=== PATIENT | female | born 1950 | race Caucasian/White ===

== ENCOUNTER → 2016-11-01 | Outpatient (CLI) | payer BC, OTHER ==
[~2016-11-01] VITALS: Ht 167.6 cm; Wt 73.8 kg
[~2016-11-01] MED LIST: AMBIEN 5 MG TABL5 M1 PO; BENADRYL25 MG PO; BUTRANS1 EAC1 TD; CELEBREX 200 M200 MG; ESTRACE0.5 MG PO; LEXAPRO 10 MG T10 MG PO; MIRAPEX0.25 MG PO; NEURONTIN600 MG PO; RESTORIL15 MG PO; ULTRAM 50MG TAB50 MG PO; XANAX 0.25 MG0.25 MG PO; ZEGERID 20 MG1 EACH
--- NOTE | ~2016-11-01 | HPC ---
[facility] [place] [address] PAIN MANAGEMENT CONSULTATION Name: DELFINA RAYGOZA Room #: REG [facility] Chrissie.#: [id number] Admission: 11/01/16 Attend Phys: Bud Rangel MD Discharge: Date of : 54 Report #: [id number] THIS REPORT FOR: //name// CC: HUGO Rangel DATE OF SERVICE: 11/01/2016 REASON FOR CONSULTATION: 1. Post-laminectomy syndrome with excruciating pain in the left leg and foot following an L5 distribution. 2. Insomnia. HISTORY OF PRESENT ILLNESS: The patient is a 66-year-old female I am seeing today at the request of Dr. Paul Raygoza for evaluation of post-laminectomy syndrome. I last saw the patient in our clinic about 3 years ago. Beginning in 2015, her pain in the low back worsened and she decided to undergo treatment of her L5-S1 spondylolisthesis with a surgical anterior-posterior decompression and posterior fusion. The surgery was performed on 08/16/2015 and in the recovery room, she woke with excruciating pain radiating into the left leg following an L5 distribution. Symptoms persisted at severe level for about 48 hours and she was taken back to the operative room for a revision. At that time, it was noted that there was swelling and edema around the L5 nerve root. Surgery was completed and she was allowed to recover for another month or two, but symptoms were ongoing. She was then taken to the operative room for a second reason vision surgery on October 20. She says that there was treatment of pars fractures. Hardware was repositioned. She was allowed to recover from that surgery and undergone physical therapy and other treatments to help with recovery, but she is now left with a persistent left L5 radiculopathy, which has been documented also by EMG. She has been seen at the pain clinic at [facility] where they have provided medication trials and she was given 2 trochanteric bursa injections for coexistent hip pain. That is slightly better, but her primary problem remains the severe symptoms in her left thigh, calf and foot. She describes these symptoms as burning, stabbing and numbness; intensity scores vary between 3 and 10, her average daily pain intensity is 8/10 on a daily basis. She has been extremely discouraged and frustrated by her lack of recovery. She has also been suffering greatly with insomnia and has trialed various medications with limited success. She reports that she is getting about 2 hours of sleep at night and is ____ on her. She has been trying to use mindfulness meditation and is undergoing some pain [address] [address] PAIN MANAGEMENT CONSULTATION Name: DELFINA RAYGOZA Room #: REG [facility] Car#: [id number] Admission: 11/01/16 Attend Phys: Bud Rangel MD Discharge: Date of : 54 Report #: [id number] counseling weekly with a counselor and this has been helpful. I received a phone call from her , Dr. Paul Raygoza who asked if we would see her to discuss options, particularly spinal cord stimulation. She has had initial discussion about this with Dr. Lee Ann Oglesby at [facility]. MEDICATIONS: Alprazolam 0.25 mg at bedtime for sleep, gabapentin 1200 mg at bedtime and 300 mg morning and evening, Benadryl 25 mg daily, tramadol 50 mg 1 tablet b.i.d. p.r.n., Mirapex 0.25 mg daily, Celebrex 200 mg daily, Zegerid 20 mg and Lexapro 10 mg daily. ALLERGIES: CONTRAST DYE, SHELL FISH, CODEINE and METOCLOPRAMIDE. PAST MEDICAL HISTORY: Surgeries as mentioned above. She has also had bilateral knee replacement in 2006, bilateral thumb fusion in 2013 and 2015, bilateral bunion surgeries in 2011, appendectomy in 1976 and tonsillectomy in 1975. She had a fundoplication in 1997 and cholecystectomy in 1996. She describes gastroesophageal reflux disease, diffuse osteoarthritis. SOCIAL HISTORY: Denies use of tobacco. Drinks alcohol socially and nightly averaging about 7 alcohol units per week. 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 Impact of pain score is highest for sleep, 10/10. REVIEW OF SYSTEMS: Positive for fatigue, weakness, decreased appetite, constipation, depression and insomnia. PHYSICAL EXAMINATION: GENERAL: Obviously frustrated, but pleasant 66-year-old female. VITAL SIGNS: Blood pressure is 125/82, heart rate 72, respirations 16. She is 5 feet 6 inches, 162 pounds for a BMI of 26.3. CHEST: Clear. CARDIAC: Rhythm was regular. MUSCULOSKELETAL: She is able to easily move independently from a sitting to standing position and ambulates without antalgic features to her gait. There is no obvious weakness. Examination of the spine reveals two small incisions in the lower lumbar region where her posterior fusion occurred. She has reasonable range of motion with flexion, extension, rotation, and [id number] tilt. Straight leg raising in the sitting and in the supine position is performed without exacerbation of her symptoms. There is no notable focal weakness on the right. On the left, she has difficulty with dorsiflexion of the great toe, but is able to dorsiflex her foot against resistance. Sensation to light touch and pinprick is diminished slightly across the top of her foot. Deep tendon reflexes are trace at the knee on the left, 1 to 2+ on the right. Ankle jerk reflexes are symmetrical and trace. X-ray reports are reviewed. The most recent MRI shows that there has been some resolution of the edema and swelling noted around the L5 nerve root that was [facility] [address] [place] [address] PAIN MANAGEMENT CONSULTATION Name: DELFINA RAYGOZA Room #: REG [facility]#: [id number] Admission: 11/01/16 Attend Phys: Bud Rangel MD Discharge: Date of : 54 Report #: [id number] evident immediately following her surgery in 2015. Other surgical changes with an anterior-posterior instrumentation and interbody fusion at L5-S1, right-sided posterior hardware is noted as well. There is an unchanged 7 mL anterolisthesis of L5 on S1 with partial of the L5 lamina. Noted also is bilateral L5 spondylolysis. IMPRESSION: Post-laminectomy syndrome with persistent L5 radiculopathy of a severe nature on the left. RECOMMENDATIONS: 1. Resumed the discussion regarding spinal cord stimulation. I informed her that many of the physicians locally including myself and our group have been using the high frequency stimulation system provided by [employer] over the course of the last 6-9 months with some very positive outcomes. The advantages seemed to be the lack of the need for paresthesia to provide relief, good patient acceptance. I would recommend that if she undergoes a trial of spinal cord stimulation, that we proceed with that system. Pros and cons of the [employer] and the [employer] systems were also reviewed. I think that there are some advantages with each system and we could discuss further the systems that are available today. 2. I have recommended a trial of a new medication, Butrans patch 5 mcg to be applied q. 7 days. We had a long discussion about medication trials and she will see if this provides some relief around the clock for her. 3. Provided optimistic outlook for her. She has been very discouraged. [place] comfortable in telling her that there are many options that remain for her and she should be hopeful that the spinal cord stimulator system would be a very positive therapy for her. Followup visit is planned once we have preauthorization and we will proceed directly with her trial at that time. She can call if there are any questions prior to the placement of a trial lead. She was given a list of clinical psychologist to contact about an insurance company required preevaluation. By: [id number] Bud Rangel MD /nt
[2016-11-01 09:23] VITALS: BP 125/82
== END ==
LOC: PAIN 10-19 09:14
DX: M54.16 Radiculopathy, lumbar region (principal); M96.1 Postlaminectomy syndrome, not elsewhere classified

== ENCOUNTER → 2016-12-20 | Outpatient (CLI) | payer BC, OTHER ==
[~2016-12-20] VITALS: Ht 165.1 cm; Wt 75.4 kg
[2016-12-20 09:04] VITALS: BP 114/72
== END | disposition home or self-care (01) ==
LOC: PAIN 06:20
DX: M96.1 Postlaminectomy syndrome, not elsewhere classified (principal)

== ENCOUNTER → 2016-12-25 | Outpatient (CLI) | payer BC, OTHER ==
[~2016-12-25] VITALS: Ht 165.1 cm; Wt 75.4 kg
[2016-12-25 11:04] VITALS: BP 118/71
== END | disposition home or self-care (01) ==
LOC: PAIN 07:19
DX: M54.16 Radiculopathy, lumbar region (principal); M96.1 Postlaminectomy syndrome, not elsewhere classified; Z88.8 Allergy status to other drugs, medicaments and biological substances; Z98.890 Other specified postprocedural states

== ENCOUNTER → 2017-03-14 | Outpatient (CLI) | payer BC, OTHER ==
[~2017-03-14] VITALS: Ht 167.6 cm; Wt 71.7 kg
[~2017-03-14] MED LIST changes: +DAPTOMYCIN500 MG IVPB; +FLONASE 0.05%50 MCG NASAL; +NORTRIPTYLINE H10 M1 PO; +OXYCODONE-ACET1 EACH PO; +ZYRTEC10 M4 PO
--- NOTE | ~2017-03-14 | HPC ---
[facility] [address] [place] [address] PAIN MANAGEMENT CONSULTATION Name: GREGORYDELFINA G Room #: REG [facility] Chrissie.#: [id number] Admission: 03/14/17 Attend Phys: Bud Rangel MD Discharge: Date of : 54 Report #: [id number] THIS REPORT FOR: //name// CC: Frank Rangel DATE OF SERVICE: 03/14/2017 Followup visit for post-laminectomy syndrome with persistent left radiculopathy. The patient is seen today in clinic to discuss medication management. I received a phone call from her about 2 weeks ago. She was depressed and sad because her spinal cord stimulator which had been placed earlier this summer became infected and had to be removed. Along with the trauma of surgery and a need for ongoing intravenous antibiotics for months, she was sad, depressed and feeling somewhat hopeless now that the stimulator had been removed. She is in the clinic today to discuss medication management options. I spent roughly 35 minutes with her today in consultation. She continues to complain of her ongoing back pain with radiation to the left leg. Pain intensity is a 3. It is exacerbated by lying in bed, prolonged sitting and later in the day or riding the car. She is taking gabapentin and tramadol. Gabapentin does not seem to be effective and makes her feel drowsy. In the past, she has used opioids in the postoperative period with good results. She has been reluctant to utilize opioids long-term due to concerns of opioids that are well known and are currently discussed widely as we suffered with an opioid addiction issue in the [facility]. CURRENT MEDICATIONS: To include daptomycin; nortriptyline 10 mg at bedtime; alprazolam 0.25 mg at bedtime p.r.n.; gabapentin 600 mg at dinner at bedtime and occasionally in the morning, averaging between 1800 and 2000 mg per day; Benadryl p.r.n., tramadol, no often than 2 tablets per day 3 times a week; Mirapex daily; Celebrex daily; omeprazole; sodium carbonate and Lexapro 10 mg daily. ALLERGIES: CONTRAST DYE, SHELLFISH, CODEINE and METOCLOPRAMIDE. PHYSICAL EXAMINATION: She is pleasant, conversant, does not appear to be overmedicated. Blood pressure is 112/72, heart rate 92, respirations 16. BMI is 25.5. She has persistent pain in her back and left leg with radiculopathy including straight leg raising discomfort. IMPRESSION: 1. Chronic low back pain with radiculopathy, [place] [address] PAIN MANAGEMENT CONSULTATION Name: GREGORYDELFINA G Room #: REG [facility] Car#: [id number] Admission: 03/14/17 Attend Phys: Bud Rangel MD Discharge: Date of : 54 Report #: [id number] 2. 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 3. Depression of chronic pain. 4. Management of high risk medications under terms of an opioid agreement. The patient was agreeable to trial short acting oxycodone at very small doses with titration. 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 While there are certainly risks and we must be very cautious about safeguarding the medications and watching for addictive or drug aberrant behaviors in patients on opioids, many of our patients have found this to be very effective and has allowed them to get their lives back. Many questions were answered. Prescription was written for oxycodone 5/325, #60 tablets 1/2 tablet will be taken q. 6 hours as needed or a full tablet twice a day. I will see her back in 1 month to discuss further with further counseling. By: [id number] Bud Rangel MD /nt
[2017-03-14 14:05] VITALS: BP 112/72
== END | disposition home or self-care (01) ==
LOC: PAIN 06:40
DX: Z76.0 Encounter for issue of repeat prescription (principal); G89.29 Other chronic pain; M96.1 Postlaminectomy syndrome, not elsewhere classified; M54.16 Radiculopathy, lumbar region; F32.89 Other specified depressive episodes; Z79.899 Other long term (current) drug therapy; Z88.6 Allergy status to analgesic agent; Z88.8 Allergy status to other drugs, medicaments and biological substances; Z91.041 Radiographic dye allergy status; Z79.891 Long term (current) use of opiate analgesic

== ENCOUNTER → 2017-07-11 | Outpatient (CLI) | payer BC, OTHER ==
[~2017-07-11] VITALS: Ht 167.6 cm; Wt 76.2 kg
[~2017-07-11] MED LIST changes: +OXYCODONE-ACET1 EAC2 PO; +OXYCONTIN10 M1 PO
--- NOTE | ~2017-07-11 | HPC ---
[facility] [address] PAIN MANAGEMENT CONSULTATION Name: GREGORYDELFINA G Room #: REG [facility] Chrissie.#: [id number] Admission: 07/11/17 Attend Phys: Bud Rangel MD Discharge: Date of : 54 Report #: [id number] THIS REPORT FOR: //name// CC: HUGO Rangel DATE OF SERVICE: 07/11/2017 DATE OF REGISTRATION: 07/11/2017 Followup visit for persistent left lumbar radiculopathy status post laminectomy, status post spinal cord stimulator placement with complications in explant due to infection. I last saw the patient on 04/09/2017. She has nearly recovered from the infection issues that surrounded her spinal cord stimulator placement. She did have to go under anesthesia one final time for an incision and drainage of an incisional abscess. That has gone well and she should have the stitches out in another few days. Hopefully, this will be the end of her surgical adventures in the treatment of her back pain. At this time, she is managing her pain effectively with medication. Her use of an opioid medication is very minimal. She is here today for renewal of those medications. MEDICATIONS: Reviewed and reconciled from the electronic medical record. They include fluticasone, Zyrtec, alprazolam, diphenhydramine, Mirapex, Celebrex, Zegerid, and Lexapro. Her opioid medication is oxycodone 5/325 and she takes no more than 2 full tablets a day, oftentimes taking only half a tablet at a time. This is a morphine milligram equivalency of no more than 15 MME per day. She does have a history of osteoarthritis involving thumbs, knees and feet. Her BMI is 27.1. She tries to remain active with a walking program. Her blood pressure is 112/71, heart rate 80, respirations 16, her O2 sat is 100. She describes her pain intensity as manageable. She is not a fall risk. She is not on a blood thinner and she has not been treated for hypertension. Her opioid agreement was signed on 04/09/2017 and opioid risk tool has been assessed. She is at low risk for any addiction. Functional assessment tool will be followed. Goals for therapy include continuing work, continuing to enjoy family, social activity and travel. PHYSICAL EXAMINATION: [facility] [address] [place] [address] PAIN MANAGEMENT CONSULTATION Name: DELFINA JENKINS Room #: REG [facility] Car#: [id number] Admission: 07/11/17 Attend Phys: Bud Rangel MD Discharge: Date of : 54 Report #: [id number] GENERAL: Pleasant, alert and oriented, without signs of overmedication. VITAL SIGNS: As noted. BACK: Her back incision is healing nicely. The incision has several non-interrupted silk sutures that appear to be fine with no evidence of inflammation or infection. IMPRESSION: 1. Chronic low back pain with radiculopathy, post-laminectomy. Pain is in the left lumbar distribution. 2. Failure of spinal cord stimulation complication resulting in explant due to infection. 3. Situational depression of chronic pain, improved. 4. Management of high risk medication under terms of an opioid agreement. She is on no more than 15 morphine milligram equivalents per day. I spent 25 minutes in counseling today. She will continue on the medication. Multiple issues regarding the use of opioids long-term were discussed. Examples were provided for proper use. Questions were answered. I plan to see her back in the pain clinic in 3 months. Dated prescriptions provided. <ELECTRONICALLY SIGNED> By: Bud Rangel MD 08/14/17 [id number] Bud Rangel MD /nt
[2017-07-11 13:58] VITALS: BP 112/71
== END ==
LOC: PAIN 06:58
DX: M54.16 Radiculopathy, lumbar region (principal); M96.1 Postlaminectomy syndrome, not elsewhere classified; F32.9 Major depressive disorder, single episode, unspecified; F15.90 Other stimulant use, unspecified, uncomplicated; Z79.899 Other long term (current) drug therapy; Z98.890 Other specified postprocedural states

== ENCOUNTER → 2017-10-14 | Outpatient (CLI) | payer BC, OTHER ==
[~2017-10-14] VITALS: Ht 167.6 cm; Wt 74.6 kg
[~2017-10-14] MED LIST changes: -OXYCODONE-ACET1 EAC2 PO; -OXYCONTIN10 M1 PO
--- NOTE | ~2017-10-14 | HPC ---
[facility] [address] [place] [address] PAIN MANAGEMENT CONSULTATION Name: DELFINA JENKINS Room #: REG [facility] Dickens.#: [id number] Admission: 10/14/17 Attend Phys: Bud Rangel MD Discharge: Date of : 54 Report #: [id number] THIS REPORT FOR: //name// CC: Frank Rangel DATE OF SERVICE: 10/14/2017 Followup visit for chronic pain. The patient is here today to discuss her pain generators and also medication. She complains mostly today of pain in her neck with radicular symptoms into the C7-C8 distribution. In addition, her history of chronic low back pain with radiculopathy, post-laminectomy with pain radiating into the left lumbar distribution is well documented throughout the record. She had a failure of spinal cord stimulation due to complication of infection resulting in explant. She has been working hard at managing her pain and actually brought in the book today that I had recommended, [facility] Guide to Stress Free Living. She is finding that that is helpful in helping her deal with the stress of chronic illness. Today, her complaints are primarily about the neck. She has a cervical pain that radiates down into the left arm with cervical radiculopathy prominent. This follows clearly a C7-C8 distribution into the hand and she has symptoms of numbness, tingling and some weakness noted there. Pain intensity is 6 despite the use of medication. Her left back and leg still are troublesome and she has difficulty sleeping at night due to both pain generators. In addition to medication, she has been exercising, walking, working and has been doing her best to follow nonpharmacologic pain management strategies. MEDICATION REVIEW: Oxycodone 1/2 tablet at noon, 1 to 1-1/2 tablet at supper time and 1 tablet at bedtime to help her sleep. Maximum daily dose currently is 12.5 mg of oxycodone or roughly 19 morphine milligram equivalents. Flonase, Zyrtec, Xanax 0.25 mg at bedtime chronic use without difficulty or complications with her opioid, Benadryl, Mirapex, Celebrex, Zegerid and Lexapro. ALLERGIES: RADIOGRAPHIC DYE GIVEN IV AND CODEINE. PHYSICAL EXAMINATION: Pleasant, seems a little down today. Blood pressure is 116/61, heart rate 87 and respirations 16. BMI is 26.5. Pain intensity is 6. Examination of the cervical spine reveals pain with neck extension and right lateral tilt exacerbates pain on the left. Deep [place] [address] PAIN MANAGEMENT CONSULTATION Name: DELFINA JENKINS Room #: REG [facility]#: [id number] Admission: 10/14/17 Attend Phys: Bud Rangel MD Discharge: Date of : 54 Report #: [id number] at the biceps, triceps and brachioradialis bilaterally. There is no asymmetry noted. [employer] strength is diminished on the left in comparison to the right. She has some subjective decreased sensation along the outer aspect of the hand and into the forearm. Examination of the midback reveals a well-healed scar. No evidence of infection. No tenderness at this time. Examination of the spine in the lumbar region reveals pain with forward flexion and extension and positive straight leg raising discomfort on the left consistent with a lumbar radiculopathy. IMPRESSION: 1. Cervical radiculopathy ____ C7 on the left. 2. Chronic low back pain with radiculopathy on the left, status post laminectomy. 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 3. Situational depression with chronic pain, improved. 4. Management of high risk medication under terms of an opioid agreement. PLAN: I spent again roughly 25 minutes in counseling today discussing medication. We reviewed her morphine milligram equivalency. We talked again about ways of managing pain outside of medication and I have given her a turning point book today that she can review for additional programs that may provide both physical as well as spiritual and emotional support for this difficult challenge managing a chronic pain disorder. We discussed cervical epidural injection in detail including procedural process, risks and benefits and she would like to proceed today with an injection for her neck. PROCEDURE: She was taken to the fluoroscopic suite, placed prone, skin prepped with ChloraPrep. Skin anesthetized over C7-T1. A 20-gauge Tuohy epidural needle advanced first attempt in the epidural space with loss of resistance. There was no blood nor CSF aspirated. 1 mL of Omnipaque injected. Good spread of dye was observed in the epidural space followed by 3 mL of 0.5% lidocaine mixed with 80 mg of triamcinolone. She tolerated the procedure well and was observed for 45 minutes and discharged: Medications provided for her at discharge are oxycodone 5/325, #90 tablets 1 tablet 3 times a day as needed for pain. She will use the lowest most effective dose. Maximum daily dose will be 15 mg of oxycodone equivalent to 22.5 MME. By: [id number] Bud Rangel MD /nt
[2017-10-14 10:22] VITALS: BP 116/61
== END | disposition home or self-care (01) ==
LOC: PAIN 07:30
DX: M54.12 Radiculopathy, cervical region (principal); M54.16 Radiculopathy, lumbar region; G89.29 Other chronic pain; F43.21 Adjustment disorder with depressed mood; Z79.891 Long term (current) use of opiate analgesic; Z91.040 Latex allergy status

== ENCOUNTER → 2018-01-06 | Outpatient (CLI) | payer OTHER ==
[~2018-01-06] VITALS: Ht 165.1 cm; Wt 74.1 kg
--- NOTE | ~2018-01-06 | HPC ---
[facility] [address] [address] PAIN MANAGEMENT CONSULTATION Name: GREGORYDELFINA Ramon [id number] Admission: 01/06/18 Attend Phys: Bud Rangel MD Discharge: Date of : 54 Report #: [id number] THIS REPORT FOR: //name// CC: Frank Rangel DATE OF SERVICE: 01/06/2018 Followup visit for chronic pain with management by high risk opioid medications under terms of written agreement. The patient returns to pain clinic today for renewal of her pain medication and also for treatment of trochanteric bursitis on the left. She and her just returned from a trip to [place]. I was glad to hear that she had gone, although the trip was difficult for her. She was able to take in 4-5 days of activities, but the rest of the week she spent back at the hotel, unable to get out because the pain was too intense in her back and into her left leg. Pain has never resolved and her average daily pain score is a 6/10. She describes it worse particularly in the evening after activities and when the pain is severe it is a burning, electrical, sharp, stinging, tingling sensation that radiates all the way to the foot. She does have some bilateral pain in her feet as well. She is limited in her walking, but is continuing to try and remain active and exercising. Medications are providing good pain relief and she has no significant side effects. She is grateful for the benefit that they provide. She takes them carefully under controlled conditions, although during the trip she did take an extra pill on several days, which resulted in her being out of medication about a week early. We discussed trying to manage her pain with nonpharmacologic measures, but this use of medication to allow her to finish her vacation trip with long flights to [place] and back is acceptable, although I have reduced her back down to her current 3 times a day dosing of oxycodone 5/325. Total daily MME varies between 20 and 30. In addition to her chronic back pain and left lumbar radiculopathy, her greatest complaint today is pain over the left hip. She saw Dr. Landon Coronado, who suggested this was trochanteric bursitis. She has exquisite pain localized directly over the greater trochanter. Pain is increased with flexion, extension and external rotation. MEDICATIONS: Reviewed and reconciled. ALLERGIES: RADIOGRAPHIC DYE. SHE DID GET SOME DYE GIVEN DURING HER LAST CERVICAL EPIDURAL STEROID INJECTION AND IT SOUNDS [place] [address] PAIN MANAGEMENT CONSULTATION Name: GREGORYDELFINA G Room #: REG [facility] Josep#: [id number] Admission: 01/06/18 Attend Phys: Bud Rangel MD Discharge: Date of : 54 Report #: [id number] A SMALL AMOUNT OF OMNIPAQUE. NOTED THAT WE WOULD NOT USE IT AGAIN IF WE EVER PERFORM ANOTHER INJECTION THAT WOULD TYPICALLY REQUIRE THE USE OF RADIOGRAPHIC DYE. PHYSICAL EXAMINATION: She looks good, pleasant, alert, oriented, does not appear as depressed as I have seen her, but is discouraged by her chronic pain situation. Her blood pressure is 120/77, heart rate 70, respirations 16, O2 sat 98. She moves easily from sitting to standing position without use of arms on the chair and is able to ambulate without too much of an antalgic gait at this time. Gait worsens if she stays moving. Examination of the left hip reveals pain and localized tenderness of the greater trochanter, some pain with internal and external rotation. IMPRESSION: 1. Post-laminectomy syndrome with radiculopathy. 2. Cervical radiculopathy. 3. 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 4. Management of high risk medication, oxycodone, under terms of written opioid agreement. 5. Trochanteric bursitis, left side. RECOMMENDATION AND PROCEDURE: Trochanteric bursa injection. Skin was prepped with ChloraPrep. Skin was anesthetized with 27-gauge needle and 1% lidocaine. I then injected with a 27-gauge 1-1/2-inch needle and a 2-inch 25-gauge needle a total of 6 mL of 0.25% bupivacaine mixed with 40 mg of triamcinolone along the lateral edge of the greater trochanter and slipping just posterior and inferior. She tolerated the procedure well and was observed for a short time before discharge. Pain was noted to be improved following the injection from the local anesthetic. Prescriptions were written for her oxycodone pain medication and important instructions regarding safeguarding were given. Her MME remains at 22-30 MME per day. Followup visit planned in 3 months. <ELECTRONICALLY SIGNED> By: Bud Rangel MD 01/08/18 1622 [id number] [id number] Bud Rangel MD /nt
[2018-01-06 14:05] VITALS: BP 109/76
== END | disposition home or self-care (01) ==
LOC: PAIN 06:28
DX: M70.62 Trochanteric bursitis, left hip (principal); M96.1 Postlaminectomy syndrome, not elsewhere classified; M54.12 Radiculopathy, cervical region; G89.29 Other chronic pain; Z91.041 Radiographic dye allergy status; Z79.899 Other long term (current) drug therapy; Z98.890 Other specified postprocedural states

== ENCOUNTER → 2018-04-10 | Outpatient (CLI) | payer OTHER ==
[~2018-04-10] VITALS: Ht 165.1 cm; Wt 74.8 kg
[~2018-04-10] MED LIST changes: +OXYCODONE-ACET1 EAC2 PO; +OXYCONTIN10 M1 PO
--- NOTE | ~2018-04-10 | HPC ---
[facility] [address] [address] PAIN MANAGEMENT CONSULTATION Name: DELFINA RAYGOZA Room #: REG [facility] Chrissie.#: [id number] Admission: 04/10/18 Attend Phys: Bud Rangel MD Discharge: Date of : 54 Report #: [id number] THIS REPORT FOR: //name// CC: Frank Rangel DATE OF SERVICE: 04/10/2018 Followup visit for post-laminectomy syndrome. The patient returns to pain clinic today with her , Dr. Paul Raygoza. She was here for actually 30-minute visit. We discussed her ongoing pain. She has been using oxycodone 5 mg up to 3 times a day. It is helpful, but the duration of response is no more than 3 hours. She then grits her teeth and waits until she can take another pill. The pain is severe and limits her ability to do many things. She is typically scores her pain at 4, but she cries when she tells us this. She has been very depressed by the fact that her activities have been limited. She cannot travel as well. She cannot hike. She cannot do many of the things that brought tino to her and her together. We discussed the possibility, in fact the likelihood that she may get better over time rather than worse and we would like to keep her active. Medications may therefore play a role. We had a long discussion today about the CDC guidelines, her current morphine milligram equivalency of 22.5 and the possibility of transitioning to a long-acting opioid. She does well with oxycodone and therefore, I have suggested OxyContin 10 mg b.i.d. along with a breakthrough of two 5 mg tablets for a total maximum daily dose of 30 mg of oxycodone, essentially potential doubling of her current dose. The majority of this will be provided as a baseline. If this is working well for her, we will continue it. Otherwise, we have other options. She would not be a bad candidate for a trial on methadone, which might be my next option if we decided to do an opioid rotation. She is clearly someone who has tried all other medications. She has tried nonsteroidal anti-inflammatory drugs, anti-seizure medications and is currently on an antidepressant. Her pain remains severe, although she pushes through. It is generally worse in the evening when she is fatigued after dealing with pain all day long. It is also exacerbated by work, driving and walking. She describes it as sharp, burning sensation. It follows fairly closely along the L5 distribution on the left leg. She has no right leg pain. Her infection and complications with spinal cord stimulation are well documented throughout this record. She does not use tobacco. She drinks alcohol only in a social setting. She is not hypertensive. [facility] [address] [place] [address] PAIN MANAGEMENT CONSULTATION Name: GREGORYDELFINA Room #: REG [facility] Josep#: [id number] Admission: 04/10/18 Attend Phys: Bud Rangel MD Discharge: Date of : 54 Report #: [id number] PHYSICAL EXAMINATION: VITAL SIGNS: Blood pressure 121/57, heart rate 95, BMI is 27.4. She moves from sitting to standing position and ambulates with a mild antalgic gait. Deep tendon reflexes are 2+ at the knees. She has diminished ankle jerk reflex bilaterally. Straight leg raising is positive for radicular symptoms on the left. Sensation to light touch is intact. There may be some slight weakness in dorsiflexion of the foot, although some of this is guarding due to the pain associated with that maneuver. IMPRESSION: 1. Post-laminectomy syndrome with radiculopathy, left L5-S1 distribution. 2. Management of high risk medication. PLAN: 1. May consider transforaminal epidural injection at followup in 1 month. 2. Begin OxyContin 10 mg b.i.d. for 1 month along with oxycodone 10/325 one tablet for breakthrough twice a day. 3. Follow up in the pain clinic in one month. By: [id number] Bud Rangel MD /nt
[2018-04-10 13:00] VITALS: BP 121/57
== END ==
LOC: PAIN 06:55
DX: M96.1 Postlaminectomy syndrome, not elsewhere classified (principal); M54.16 Radiculopathy, lumbar region; Z79.899 Other long term (current) drug therapy

== ENCOUNTER → 2018-05-05 | Outpatient (CLI) | payer OTHER ==
[~2018-05-05] VITALS: Ht 165.1 cm; Wt 73.0 kg
[~2018-05-05] MED LIST changes: +METHADONE HCL5 MG PO; +RIZATRIPTAN10 MG PO; +ZOFRAN ODT4 MG DISSOLVE
--- NOTE | ~2018-05-05 | EKG ---
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
--- NOTE | ~2018-05-05 | HPC ---
[facility] [place] [address] [address] [place] [address] PAIN MANAGEMENT CONSULTATION Name: DELFINA JENKINS Room #: REG [facility] Rose.#: [id number] Admission: 05/05/18 Attend Phys: Bud Rangel MD Discharge: Date of : 54 Report #: [id number] THIS REPORT FOR: //name// CC: Frank Rangel DATE OF SERVICE: 05/05/2018 CHIEF COMPLAINT: Followup visit for chronic intractable low back pain, post-laminectomy syndrome with radiculopathy on the left following an L5 distribution. The patient returns to pain clinic today for further consultation and transforaminal epidural injection. We discussed potential risks and benefits of this injection. She has substantial hardware in her back fusing L5-S1 and she has an anterior fusion as well with a plate. Everything is solid, but she is miserable with pain that radiates down her leg. She had good response to spinal cord stimulator, but had to be removed because of infection. We have been trying to manage her with medication. At this point, she is anxious to try anything. OxyContin 20 mg b.i.d. with oxycodone was ineffective. We talked about transitioning to methadone last visit and I have agreed to go forward with that today. We will start very slow 5 mg a day and then gradually increase it to 15 mg over a week. An epidural injection will be performed under fluoroscopic guidance. Potential benefits and risks of the injection have been reviewed today including risks of infection. She has had a previous spinal infection. Questions were asked and answered. I told them until we got in through, I was not sure if I would be able to perform an L5-S1 foraminal injection. The targets are obscured by her hardware. That was true and although I made efforts to try and identify the neural foramen effectively, it was difficult and I was unable to do so with our current imaging. PHYSICAL EXAMINATION: GENERAL: She moves from sitting to standing position, ambulates with mild antalgic features. VITAL SIGNS: Her blood pressure is 127/73, heart rate 75, respirations 16. BMI 26.8. She has positive straight leg raising at about 60 degrees on the left, reproducing pain in the L5-S1 distribution. Sensation is intact. She has mild weakness with dorsiflexion of the left foot against resistance. Otherwise, motor exam is normal. IMPRESSION: 1. Post-laminectomy with fusion syndrome with lumbar radiculopathy, left L5-S1 distribution. [facility] [address] [place] [address] PAIN MANAGEMENT CONSULTATION Name: GREGORYDELFINA G Room #: REG [facility]#: [id number] Admission: 05/05/18 Attend Phys: Bud Rangel MD Discharge: Date of : 54 Report #: [id number] 2. Management of high risk medication. PROCEDURE: Left L4-L5 transforaminal injection under fluoroscopic guidance. PROCEDURE: She was taken to fluoroscopic suite, placed prone, skin prepped with ChloraPrep. Skin anesthetized over the L4-L5 neural foramen. Using triplanar fluoroscopic views, I advanced needle easily into the epidural space. A 0.25 mL of Omnipaque was diluted out 3-1 with lidocaine and I injected this into the neural foramen. It extended nicely into the epidural space. No further dye was utilized due to her history of significant dye allergy. I then injected a total of 3 mL of 1% lidocaine mixed with 80 mg of triamcinolone and the needle was removed. She tolerated the procedure well and was observed for a short time in recovery room and discharged. Short trial dose of methadone was provided 30 tablets along with oxycodone 10 mg #60 for breakthrough pain and will find out in a week or two whether this combination of medication is effective alright for longer prescriptions at that time. By: [id number] Bud Rangel MD /nt
[2018-05-05 10:28] VITALS: BP 127/73
== END | disposition home or self-care (01) ==
LOC: PAIN 07:45
DX: M54.16 Radiculopathy, lumbar region (principal); M96.1 Postlaminectomy syndrome, not elsewhere classified; G89.29 Other chronic pain; Z79.891 Long term (current) use of opiate analgesic; Z91.041 Radiographic dye allergy status; Z88.8 Allergy status to other drugs, medicaments and biological substances; Z79.899 Other long term (current) drug therapy

== ENCOUNTER → 2018-05-26 | Outpatient (CLI) | payer OTHER ==
[~2018-05-26] VITALS: Ht 162.6 cm; Wt 73.8 kg
--- NOTE | ~2018-05-26 | HPC ---
[facility] [address] [place] [address] PAIN MANAGEMENT CONSULTATION Name: GREGORYDELFINA G Room #: REG [facility] Chrisise.#: [id number] Admission: 05/26/18 Attend Phys: Bud Rangel MD Discharge: Date of : 54 Report #: [id number] THIS REPORT FOR: //name// CC: Frank Rangel DATE OF SERVICE: 05/26/2018 Followup visit for chronic low back pain, post-laminectomy and fusion with severe left L5 radiculopathy. The patient is here today as we refine her medication management. She was initiated on methadone on 05/05/2018. She titrated her dose gradually. She is currently taking 12.5 mg per day, 2.5 mg in the morning, 5 at noon and 5 in the afternoon. She has found this to be helpful and has had only modest side effects with the medication, complaining of mild GERD. She has had no significant lightheadedness or dizziness and is opioid tolerant. Pain intensity is reduced to a 4/10. She gets some credit to the transforaminal epidural injection, which was provided at the same visit and she reports that she had approximately 50% improvement from that injection, more so than any prior injections. We decided to go ahead and continue her on a chronic opioid agreement with methadone. We will remain at the lowest effective dose and we described once again the unique properties of methadone. She will take it cautiously and carefully. On further positive note, she has noted that she has required less and less of her breakthrough oxycodone. She was previously taking up to 4 tablets a day and is now down to 1/2-1 tablet 1-2 times daily. We will continue this, but urged her again to use it as effectively as she can low dose both preemptively and if necessary for severe breakthrough pain. All other medications remain unchanged. PHYSICAL EXAMINATION: She is pleasant, alert and oriented, without any signs of overmedication. Her blood pressure 127/73, heart rate 75, BMI is 26.8. No significant change in BMI, but I have told her to watch carefully for this. She was slightly higher at previous visits. Anorexia can be a side effect of her methadone. Followup visit is planned in 2 months. Two months of prescriptions were provided for her under terms of our written agreement. We reviewed the fact that opiate medications are being used to provide analgesia adequate to support activities of daily living, not attempting to achieve a [address] [address] PAIN MANAGEMENT CONSULTATION Name: REED JENKINSINE Ramon [id number] Admission: 05/26/18 Attend Phys: Bud Rangel MD Discharge: Date of : 54 Report #: [id number] specific pain score on the 0-10 Visual Analog Scale. The current opiate medications are providing sufficient analgesia to allow the patient to participate in activities of daily living. The patient is not exhibiting any aberrant behavior suggestive of drug diversion. The patient is not having any adverse reactions to medications. The patient is not suffering from daytime somnolence or mental acuity changes. The patient is managing opiate-induced constipation with appropriate acfe-ueb-clzkagy agents and dietary considerations. The patient was counseled on concern for caution with operating a motor vehicle while using opiate medications. A physical exam was performed and the patient's functional status was evaluated. All patients with back pain were advised against the bed rest greater than 4 days and were advised to return to normal activities. Pain score assessment was noted and the treatment plan was reviewed with the patient. All current medications, both prescribed and OTC were reviewed and reconciled on the electronic medical record. Tobacco screening was accomplished and smoking cessation was advised when indicated. BMI was noted and diet/exercise modification was recommended for all patients following outside normal parameters. I reviewed with the patient today their responsibilities to safeguard prescription medications, reviewed their responsibility to utilize medications only as prescribed by the physician. They are to seek and receive pain medications only from 1 physician group ( [facility]). They are to use 1 pharmacy and keep the clinic informed if they change pharmacies. Their responsibilities include making followup visits in a timely fashion and to avoid abrupt discontinuation of medication usage. Their responsibilities further include bringing their medications (bottles from the pharmacy with residual pills) to the visit for possible confirmation of pill counts and the patient understands it is their responsibility to submit to random drug screens to ensure both that the medications prescribed are present, and that no other controlled substances are present. All prescriptions provided today were generated electronically. By: [id number] Bud Rangel MD /nt
[2018-05-26 12:06] VITALS: BP 111/71
== END ==
LOC: PAIN 11:49
DX: M54.16 Radiculopathy, lumbar region (principal); M96.1 Postlaminectomy syndrome, not elsewhere classified; M43.26 Fusion of spine, lumbar region; Z79.899 Other long term (current) drug therapy

== ENCOUNTER → 2018-07-21 | Outpatient (CLI) | payer OTHER ==
[~2018-07-21] VITALS: Ht 162.6 cm; Wt 76.7 kg
[2018-07-21 11:02] VITALS: BP 116/76
--- NOTE | 2018-07-21 11:16 | NUR ---
Pain Clinic Assessment: 1. History of Osteoarthritis: hands,knees,neck, and feet History of Rheumatoid Arthritis: none 2. Height: 5 ft. 4 in. 162.6 cm. Weight: 169.0 lb. oz. 76.658 kg. Patient's BMI: 29.0 3. Vital Signs: BP: 116/76 Pulse: 70 Resp: 14 Temp: 02 Sat: 97 ECG Mon: 4. Pain Intensity: 5 5. Fall Risk: Dizziness: N Needs help standing or walking: N Fallen in the last 3 months: N Fall risk comments: 6. Patient on Blood Thinner: None 7. History of Hypertension: N 8. Opioid Therapy greater than 6 weeks: Y Opiate Contract Signed: 04/09/17 9. Risk Assessment Tool Provided: low risk-3 10. Functional Assessment Tool: 11. Recreational Drug Use: Never Drug Type: Tobacco Use: Never Smoker Tobacco Type: Amount or Packs/day: How Many Years: Alcohol Use: Yes Frequency: Quant:
--- NOTE | 2018-07-23 15:34 | HPC ---
[facility] [address] [address] PAIN MANAGEMENT CONSULTATION Name: GREGORYDELFINA Navarro Room #: REG Criss Dickens.#: [id number] Admission: 07/21/18 Attend Phys: Bud Rangel MD Discharge: Date of : 54 Report #: [id number] THIS REPORT FOR: //name// CC: Frank Rangel DATE OF SERVICE: 07/21/2018 CHIEF COMPLAINT: Followup visit for chronic low back pain, post-laminectomy syndrome and severe left L5 radiculopathy. I last saw the patient on 05/26/2018. We have been in contact by phone since. She was doing reasonably well with about 50% improvement following an epidural and taking of methadone up to 15 mg per day. Over the course of the last month pain has gradually increased. She is despondent today. She is worried about her ongoing pain and her failure to receive benefit following multiple surgeries. She had complications with her spinal cord stimulator placement with an infection, which required explantation. She has been seen at the [facility]. They have ensured her that they can place a paddle lead and she will be undergoing that treatment in the upcoming month. She is understandably anxious about another surgery. I am somewhat concerned about the scar tissue within the epidural space that will be in the region where the paddle lead is being placed, but the [facility] is well aware of this and they seem to be confident that they can place a spinal cord stimulator system for her. She is an ideal candidate. She has developed tolerance to her opioid medication and also is seeing less and less benefit. I have agreed to increase her dose from 15 mg to 20 mg. I believe over the course of next week or two just to get her to surgery she may need a bit higher dose, so I have agreed that we will agree to no more than 30 mg per day, 10 mg in divided doses 3 times. She also has breakthrough oxycodone. Both will help with sleep. We discussed the importance of sleep and I provided her with a recent article that described a study from the Journal of Neurology and describing sleep as an important contributor to pain control. She has been sleeping poorly due to her positional pain. She interestingly is unable to get comfortable in any position while in the horizontal. Her best relief comes when she is standing. Often times at night she gets up, paces about, stands for a while, and then finishes the night in a reclining chair. MEDICATIONS: All reviewed and reconciled. [facility] [address] [place] [address] PAIN MANAGEMENT CONSULTATION Name: DELFINA JENKINS [facility] [id number] Admission: 07/21/18 Attend Phys: Bud Rangel MD Discharge: Date of : 54 Report #: [id number] PHYSICAL EXAMINATION: GENERAL: She appears depressed and anxious today. VITAL SIGNS: Blood pressure 116/76, heart rate 70, respirations 14, BMI 29.0. MUSCULOSKELETAL: She can move easily from sitting to standing position. Her gait is nonantalgic. She has pain across her lumbosacral segment, localized tenderness to the right of midline. She has radiculopathy on exam that follows the L5 and S1 distribution all the way to the foot. IMPRESSION: Post-laminectomy syndrome chronic, radiculopathy, L5-S1. PLAN: 1. [facility] for spinal cord stimulator placement in the next 2 weeks. 2. Increase methadone to 20 mg with instructions to consider increasing her medication to a tolerable level up to 30 mg. Prescriptions provided for 1 month at a dose of 30 mg per day. 3. Use oxycodone 10/325 for breakthrough pain. 4. Discussed additional co-analgesics, but she is highly sensitive to all other medications. 5. Presented optimistic outlook and provided information regarding wellness behaviors. Followup visit planned in a month. <ELECTRONICALLY SIGNED> By: Bud Rangel MD 07/23/18 1534 1407 [id number] Bud Rangel MD /nt
== END ==
LOC: PAIN 07:03
DX: M54.17 Radiculopathy, lumbosacral region (principal); M96.1 Postlaminectomy syndrome, not elsewhere classified; Z79.899 Other long term (current) drug therapy

== ENCOUNTER → 2018-08-18 | Outpatient (CLI) | payer OTHER ==
[~2018-08-18] VITALS: Ht 162.6 cm; Wt 75.5 kg
[~2018-08-18] MED LIST changes: +MIRAPEX0.5 MG PO; +PERCOCET 10-321 EACH PO; +ROXICODONE15 M1 PO
--- NOTE | ~2018-08-18 | HPC ---
[facility] [address] [place] [address] PAIN MANAGEMENT CONSULTATION Name: GREGORYDELFINA G Room #: REG Criss Dickens.#: [id number] Admission: 08/18/18 ������������������ Attend Phys: Bud Ranegl MD Discharge: ������������������ Date of : 54 Report #: [id number] THIS REPORT FOR: //name// CC: Frank Rangel DATE OF SERVICE: 08/18/2018 Followup visit for management of chronic post-laminectomy syndrome with severe left L5 radiculopathy. The patient is here today in followup for medication management. I received a phone call from her following the placement of her spinal cord stimulator in [place]. She and her spend time in [place]. She had the procedure performed at the [facility] in [place]. They waited 3 weeks following the procedure to activate her [employer] stimulator. The rep performed the activation and she was given 3 programs, none of which currently are providing substantial benefit. She is looking for the [employer] automobile rental representative in [place] and we will see what we can do to put her in touch with that person and they are welcome to come to our hospital to help adjust her stimulator for her. She reports her daily pain on average is 8-9/10 despite the stimulator and the use of strong opioid medication. Her intolerance to other medications has been well documented. Her current use of methadone is 5 mg 4 times daily as she takes it with an oxycodone 5 mg 4 times daily. Her MME calculates to 110. Despite this high MME, she is not doing well. I asked her specifically if she noticed improvement more so with her oxycodone 5 mg or with her methadone. She does notice that the oxycodone seems to be more helpful and we discussed reasons for that, particularly the baseline effect of methadone versus the onset and offset of the shorter acting oxycodone medication. Some patients do prefer that for their pain control and it may be possible that she is for one reason or another more responsive to oxycodone. I have elected to take her off of methadone since it is not effective. She will keep her prescription handy in case we decide to renew it. I have recommended that she use oxycodone 15 mg [address] of the methadone-oxycodone combination she is currently using. This will actually be a reduction in her MME from 110 to 90, but with this opioid rotation, hopefully we will see better improvement overall in her pain management. This would also be a better medication to taper her if we assume that she will continue to find a better relief with her spinal cord stimulator. [address] [address] PAIN MANAGEMENT CONSULTATION Name: DELFINA JENKINS Room #: REG [facility] Josep#: [id number] Admission: 08/18/18 ������������������ Attend Phys: Bud Rangel MD Discharge: ������������������ Date of : 54 Report #: [id number] She also called me and concerned about the fact that she had monitored anesthesia care anesthetic in [place] and was awakened during the procedure purposely by the anesthesia team so that they can give the feedback regarding her stimulation patterns. This was uncomfortable for her and distressing. She reports that she is suffering some post-traumatic stress disorder and is seeking some counseling. I have asked her to discuss this further with the anesthesia team who acknowledged that this was "a screw up" and not something that they had intended. PHYSICAL EXAMINATION: Today, her affect is depressed. Her blood pressure 110/70, heart rate 70, respirations 16, BMI 28.5. She is walking with antalgic features. Pain across the low back is noted and pain radiating into the left leg consistent with her well established L5 radiculopathy. PLAN: 1. Discontinue methadone. 2. Begin oxycodone 15 mg 4 times daily tomorrow. She can use one half to one tablet of oxycodone today. The half-life of methadone should allow for continued reductions of methadone within the blood level over the next several days. Followup visit is scheduled for 1 month. ��������������������������������������������� ���������������������������������������� By: ��������������������������������������������� 1511 1030 Bud Rangel MD /nt
[2018-08-18 09:14] VITALS: BP 110/70
--- NOTE | 2018-08-18 09:39 | NUR ---
Pain Clinic Assessment: 1. History of Osteoarthritis: hands,knees,neck, and feet History of Rheumatoid Arthritis: none 2. Height: 5 ft. 4 in. 162.6 cm. Weight: 166.4 lb. oz. 75.479 kg. Patient's BMI: 28.5 3. Vital Signs: BP: 110/70 Pulse: 70 Resp: 16 Temp: 02 Sat: 98 ECG Mon: 4. Pain Intensity: 4 AVG 8-9 AT TIMES 5. Fall Risk: Dizziness: N Needs help standing or walking: N Fallen in the last 3 months: N Fall risk comments: 6. Patient on Blood Thinner: None 7. History of Hypertension: N 8. Opioid Therapy greater than 6 weeks: Y Opiate Contract Signed: 04/09/17 9. Risk Assessment Tool Provided: low risk-3 10. Functional Assessment Tool: 11. Recreational Drug Use: Never Drug Type: Tobacco Use: Never Smoker Tobacco Type: Amount or Packs/day: How Many Years: Alcohol Use: Yes Frequency: Quant:
== END ==
LOC: PAIN 07:01
DX: G89.29 Other chronic pain (principal); M54.5 Low back pain; M79.605 Pain in left leg; M79.672 Pain in left foot; Z79.899 Other long term (current) drug therapy; Z72.89 Other problems related to lifestyle

== ENCOUNTER → 2018-09-11 | Outpatient (CLI) | payer OTHER ==
[~2018-09-11] VITALS: Ht 162.6 cm; Wt 74.0 kg
--- NOTE | ~2018-09-11 | HPC ---
[facility] [address] [place] [address] PAIN MANAGEMENT CONSULTATION Name: GREGORYDELFINA Navarro Room #: REG [facility] M.John.#: [id number] Admission: 09/11/18 ������������������ Attend Phys: Bud Rangel MD Discharge: ������������������ Date of : 54 Report #: [id number] THIS REPORT FOR: //name// CC: Frank Rangel DATE OF SERVICE: 09/11/2018 CHIEF COMPLAINT: Followup visit for chronic low back pain with severe L5 radiculopathy. HISTORY OF PRESENT ILLNESS: The patient returns to pain clinic today and spent the first 30 minutes of her visit with the billing representative from [facility] for a spinal cord stimulator adjustment. She was given 2 separate programs; one with burst and the other in a tonic mode. She was given instruction on how to manually control her device. She is some better. I have seen her at points where she is frustrated, anxious, depressed and angry about her chronic pain and the lack of ability to bring it under control. Today, she seems more hopeful and optimistic; that I believe is related to the fact that the stimulator is working better and also that we have been able to use medication more effectively. We have made adjustments in her medication on several visits. At last visit, I made plans to transition or completely off of methadone on to oxycodone at a slightly higher morphine milligram equivalency; that was not well tolerated and she ultimately went back on methadone finding it to be helpful as a baseline medication. She continues to take oxycodone at a much higher level, however. Her current morphine milligram equivalent level is 135. She understands now the concepts of baseline and breakthrough. Methadone at 5 mg 3 times daily establishes that baseline. She is trying to use the lowest possible dose of oxycodone breaking her 15 mg tablets in half to 7.5. Some day she has been able to utilize a lower level. I disagreed with her use of medication at night. She is sleeping much better, which is excellent since sleep place such an important role in chronic pain. She has, however, setting an alarm to wake herself up at 4:30 in the morning to take pain medication and then again earlier in the morning before 10:00 when she oftentimes arises from bed. I would encourage her to not interrupt natural sleep when it occurs. If she wakes up, she may then use her pain medication as necessary to fall back asleep or to provide a baseline for her emergence. We have discussed morning is particularly difficult time for many people with chronic pain, particularly back pain. There is a lot of stiffness and tightness [address] [address] PAIN MANAGEMENT CONSULTATION Name: DELFINA JENKINS [id number] Admission: 09/11/18 ������������������ Attend Phys: Bud Rangel MD Discharge: ������������������ Date of : 54 Report #: [id number] when she first arises and she should get moving, take a shower and go for morning walk to try and help mobilize herself. This is helpful both physically, but also mentally and emotionally. We talked about planning pacing prioritizing. We discussed use of breakthrough medication, both in a preemptive and also as a treatment opportunity. She will continue to work with her breakthrough medication carefully at the lowest effective dose. PHYSICAL EXAMINATION: Today, she seems more upbeat. Her blood pressure is 125/73, heart rate 63, respirations 14 and BMI 28. She moves easily from sitting to standing position, ambulates with a much more stable gait today. She does not have a pain look on her face. She is more optimistic. Some tenderness across the back is noted. She continues to have pain in the L5 distribution on the left. IMPRESSION: 1. Chronic intractable low back pain, post-laminectomy syndrome with radiculopathy. 2. Adjustment of spinal cord stimulator during the initial portion of today's visit. 3. Management of high risk medications under terms of written opioid agreement. Medications were provided for 2 months. PLAN: To see her back in the pain clinic at that time. Her MME is 135, higher than we would like to see. We will continue to encourage as the stimulator, becomes more refined. She should be able to taper some off of this higher dose with exercise as well. ��������������������������������������������� ���������������������������������������� By: ��������������������������������������������� 1517 0225 Bud Rangel MD /nt
[2018-09-11 12:40] VITALS: BP 125/73
--- NOTE | 2018-09-11 12:47 | NUR ---
Pain Clinic Assessment: 1. History of Osteoarthritis: hands,knees,neck, and feet History of Rheumatoid Arthritis: none 2. Height: 5 ft. 4 in. 162.6 cm. Weight: 163.2 lb. oz. 74.027 kg. Patient's BMI: 28.0 3. Vital Signs: BP: 125/73 Pulse: 63 Resp: 14 Temp: 02 Sat: 95 ECG Mon: 4. Pain Intensity: 3 5. Fall Risk: Dizziness: N Needs help standing or walking: N Fallen in the last 3 months: N Fall risk comments: 6. Patient on Blood Thinner: None 7. History of Hypertension: N 8. Opioid Therapy greater than 6 weeks: Y Opiate Contract Signed: 04/09/17 9. Risk Assessment Tool Provided: low risk-3 10. Functional Assessment Tool: 11. Recreational Drug Use: Never Drug Type: Tobacco Use: Never Smoker Tobacco Type: Amount or Packs/day: How Many Years: Alcohol Use: Yes Frequency: Daily Quant: 1
== END ==
LOC: PAIN 07:03
DX: M54.16 Radiculopathy, lumbar region (principal); M96.1 Postlaminectomy syndrome, not elsewhere classified; G89.4 Chronic pain syndrome; Z79.891 Long term (current) use of opiate analgesic

== ENCOUNTER → 2018-11-03 | Outpatient (CLI) | payer OTHER ==
[~2018-11-03] VITALS: Ht 162.6 cm; Wt 70.6 kg
[~2018-11-03] MED LIST changes: +ROXICODONE5 M2 PO
--- NOTE | ~2018-11-03 | HPC ---
[facility] [address] [address] PAIN MANAGEMENT CONSULTATION Name: GREGORYDELFINA G Room #: REG Criss Dickens.#: [id number] Admission: 11/03/18 ������������������ Attend Phys: Bud Rangel MD Discharge: ������������������ Date of : 54 Report #: [id number] THIS REPORT FOR: //name// CC: HUGO Rangel DATE OF SERVICE: 11/03/2018 Followup visit for chronic low back pain with severe L5 radiculopathy. Status post spinal cord stimulator placement. Management of high-risk medications. The patient returns to the pain clinic today. I spoke with her by phone and communicated by text while she was hospitalized for a few days at [facility]. She was admitted with bowel obstruction. This was felt to be related to adhesions, although slowing of her bowel function with her opioids may have simply added to and contributed to the problem. She was unhappy with the care she received there, feeling that they did not appropriately treat her opioid dependence with systemic opioids during the time that she could not take her oral medications. She has recovered from her bowel obstruction and is continuing on at her pace of tapering her opioid medication as slowly as possible. We discussed issues such as dependence, opioid tolerance, opioid hyperalgesia and addiction today. In August, she was taking methadone 5 mg 3 times daily and oxycodone 15 mg 3 times daily. She has now reduced her medication over the last 2 months to methadone 5 mg 3 times daily and oxycodone 5 morning and afternoon and then she takes 10 mg to help with sleep in the evening. There are some nights when she is able to reduce that further. She is continuing to taper slowly and we discussed tapering in such a way that we would avoid withdrawal and also not potentiate her pain to allow her to remain active. PHYSICAL EXAMINATION: GENERAL: She is a bit frustrated again today. She had a long wait because she was the last appointment of the morning and I apologized. VITAL SIGNS: She is 5 feet 4 inches, 155 pounds, BMI 26.7. Blood pressure 116/71, heart rate 62 and respirations 14. NEUROLOGIC: Affect is serious. She does not appear overly depressed or anxious today, but I know that she continues to be frustrated by our discussion with her need to deal with chronic pain and her slow recovery. DISCUSSION: We discussed the importance of positivity and presented once again a positive outlook. Nonpharmacologic pain management techniques are being followed. Spinal cord stimulator is helpful. She is making efforts to reduce her reliance on opioids. I have given her medication for 3 months at her current dosing. Prescriptions for methadone [place] [address] PAIN MANAGEMENT CONSULTATION Name: DELFINA JENKINS Room #: REG [facility]BIN Car#: [id number] Admission: 11/03/18 ������������������ Attend Phys: Bud Rangel MD Discharge: ������������������ Date of : 54 Report #: [id number] dose as described above. Importance of safeguarding medications was discussed. I reviewed her [facility] prescription drug monitoring information. There are no unexpected entries. I have also reviewed her opioid agreement and we will continue to see her at 3-month intervals. She asked about a pain diary and it is my belief that this does not help with diversion and distraction important tools in learning to manage chronic pain. A good psychologic pain management program, I think, would be of benefit for the patient too and we will discuss this further with her in the future. She may want to begin attending Bakari Mukherjee' program; I do not believe she has done so at this time. ��������������������������������������������� ���������������������������������������� By: ��������������������������������������������� 1730 0208 Bud Rangel MD /nt
[2018-11-03 12:01] VITALS: BP 116/71
--- NOTE | 2018-11-03 12:14 | NUR ---
Pain Clinic Assessment: 1. History of Osteoarthritis: hands,knees,neck, and feet History of Rheumatoid Arthritis: NONE 2. Height: 5 ft. 4 in. 162.6 cm. Weight: 155.6 lb. oz. 70.580 kg. Patient's BMI: 26.7 3. Vital Signs: BP: 116/71 Pulse: 62 Resp: 14 Temp: 02 Sat: 100 ECG Mon: 4. Pain Intensity: 6 5. Fall Risk: Dizziness: Y Needs help standing or walking: N Fallen in the last 3 months: N Fall risk comments: 6. Patient on Blood Thinner: None 7. History of Hypertension: N 8. Opioid Therapy greater than 6 weeks: Y Opiate Contract Signed: 04/09/17 9. Risk Assessment Tool Provided: low risk-3 10. Functional Assessment Tool: 11. Recreational Drug Use: Never Drug Type: Tobacco Use: Never Smoker Tobacco Type: Amount or Packs/day: How Many Years: Alcohol Use: Yes Frequency: Daily Quant: 1 GLASS OF WINE
== END ==
LOC: PAIN 06:46
DX: G89.29 Other chronic pain (principal); M54.16 Radiculopathy, lumbar region; Z79.899 Other long term (current) drug therapy; Z79.891 Long term (current) use of opiate analgesic

== ENCOUNTER → 2018-12-01 | Outpatient (CLI) | payer OTHER ==
[~2018-12-01] VITALS: Ht 162.6 cm; Wt 72.2 kg
[2018-12-01 12:42] VITALS: BP 121/70
--- NOTE | 2018-12-01 12:45 | NUR ---
Pain Clinic Assessment: 1. History of Osteoarthritis: hands,knees,neck, and feet History of Rheumatoid Arthritis: NONE 2. Height: 5 ft. 4 in. 162.6 cm. Weight: 159.2 lb. oz. 72.213 kg. Patient's BMI: 27.3 3. Vital Signs: BP: 121/70 Pulse: 63 Resp: 14 Temp: 02 Sat: 100 ECG Mon: 4. Pain Intensity: 6 5. Fall Risk: Dizziness: N Needs help standing or walking: N Fallen in the last 3 months: N Fall risk comments: 6. Patient on Blood Thinner: None 7. History of Hypertension: N 8. Opioid Therapy greater than 6 weeks: Y Opiate Contract Signed: 04/09/17 9. Risk Assessment Tool Provided: low risk-3 10. Functional Assessment Tool: 11. Recreational Drug Use: Never Drug Type: Tobacco Use: Never Smoker Tobacco Type: Amount or Packs/day: How Many Years: Alcohol Use: Yes Frequency: Daily Quant: 1 GLASS OF WINE
--- NOTE | 2018-12-02 14:00 | HPC ---
[facility] [address] [place] [address] PAIN MANAGEMENT CONSULTATION Name: GREGORYDELFINA Room #: REG [facility] M.John.#: [id number] Admission: 12/01/18 ������������������ Attend Phys: Melinda Joe Discharge: ������������������ Date of : 54 Report #: [id number] THIS REPORT FOR: //name// CC: Melinda Xie DATE OF SERVICE: 12/01/2018 CHIEF COMPLAINT: Chronic low back pain with severe L5 radiculopathy. HISTORY OF PRESENT ILLNESS: This is a very pleasant 68-year-old female who returns to the clinic today for a check of her spinal cord stimulator. She recently had this [employer] device placed by Dr. Xie in [place], [place]. She tells me that it was functioning quite well for several months. She had even tried to decrease some of her pain medicine. Then about a month ago the SCS started turning off intermittently. The generator started turning off at nighttime when she was asleep, but then now she finds it more frequently, she will feel less paresthesia and she will look at her handheld device and it will be off. The most this has happened is 4 times in 1 day, on average she tells me that it is 2 times a day. She feels that sometimes the paresthesias is so strong when she turns it back on that she has had to decrease the number to 38 where she used to tolerate at 40-45 per her generator, the intensity will increase spontaneously per her report. The patient is very disappointed that this is not working as it had in the past since she had such good relief and she was so hopeful. Today we were asked to take x-rays of the leads and the generator device to make sure there are no breaks and the [facility] rep is here present today as well. ALLERGIES: CONTRAST DYE, SULFA, SHELLFISH, IODINE, CODEINE, AND REGLAN. CURRENT LIST OF MEDICATIONS: Oxycodone 5 mg 3-4 times a day p.r.n., methadone 5 mg 3 times a day, Mirapex 0.5 mg 3 times a day, Rizatriptan 10 mg p.r.n., Zofran p.r.n., Zyrtec daily, Xanax 0.5 mg at bedtime, Celebrex 200 mg daily, Zegerid 1 capsule daily, Lexapro 10 mg daily. PQRS: 1. She does have osteoarthritis in her hands, knees, neck and feet. She denies any rheumatoid arthritis. 2. Height is 5 feet 4 inches, weight is 152, BMI is 27. Vital signs, blood pressure 121/70, pulse is 63, respirations 14, oxygen sat is 100. Pain score is 6/10. 3. Fall risk. Denies dizziness. Does not need help walking or standing. Has not fallen in the last 3 months. The patient is not on any blood thinners, does not take medicine for hypertension. Opioid therapy is greater than 6 weeks; [address] [address] PAIN MANAGEMENT CONSULTATION Name: DELFINA JENKINS Room #: REG [facility] Car#: [id number] Admission: 12/01/18 ������������������ Attend Phys: Melinda Joe Discharge: ������������������ Date of : 54 Report #: [id number] therefore, an opiate signed contract is on the chart. Her risk assessment tool is low. Functional assessment is 27/70. Recreational drug use, she denies. She is not a smoker and occasionally drinks alcohol. According to the prescription monitoring system, she does not need her medications today. She filled just recently and she tells us that she has another month of medications left and she does take on her meds at all times. PHYSICAL EXAMINATION: GENERAL: This is an alert and oriented 68-year-old, appears her stated age. Her affect is appropriate. HEENT: Normocephalic, atraumatic. Extraocular eye muscles are intact. MUSCULOSKELETAL: The patient is able to walk with a slightly antalgic gait. She moves from sitting to standing without the aid of the chair. She has some tenderness across her lumbar spine in the L5 distribution, more on the left than the right. Her lower extremity strength judged to be 5/5 in all major muscle groups. IMPRESSION: 1. Chronic intractable low back pain, post-laminectomy syndrome with radiculopathy. 2. Spinal cord stimulator [employer] device. 3. Management of high risk medication under terms of written opioid agreement. PLAN: 1. We did place the patient under the fluoroscopy and looked with Dr. Bud Rangel at her spinal cord stimulator leads as well as the generator and the adaptors that attach everything together they looked appropriate, but we will send these pictures to Dr. Xie and have him look at them according to the operative report that the patient had on her phone, her surgery note showed that the top of T9 was where her leads were placed originally. 2. The [employer] rep tells us that according to her documentation, it looks like everything is functioning fine, but does show high impedance noted and is unsure why the patient's device shuts off spontaneously by itself. 3. We did instruct the patient to send all these and the dictation to Dr. Xie and if it is a problem with the actual generator to have that replaced by him in [place], [place]. The patient is very agreeable with this plan of care. She tells us that if that is what they determined, she will go out there and have it replaced if that is needed. 4. No medications needed today. The patient will follow up with us in the end of January for medications. Again, the patient was seen with Dr. Bud Rangel who collaborated care today. ��������������������������������������������� <ELECTRONICALLY SIGNED> ���������������������������������������� By: Melinda Joe ��������������������������������������������� 12/02/18 1400 1531 [id number] Melinda Joe /nt
== END ==
LOC: PAIN 06:55
DX: M54.16 Radiculopathy, lumbar region (principal); G89.4 Chronic pain syndrome; Z79.891 Long term (current) use of opiate analgesic; Z79.899 Other long term (current) drug therapy

== ENCOUNTER → 2019-01-26 | Outpatient (CLI) | payer OTHER ==
[~2019-01-26] VITALS: Ht 162.6 cm; Wt 72.3 kg
[~2019-01-26] MED LIST changes: +COLCHICINE0.6 M1 PO
[2019-01-26 09:10] VITALS: BP 121/69
--- NOTE | 2019-01-26 09:19 | NUR ---
Pain Clinic Assessment: 1. History of Osteoarthritis: hands,knees,neck, and feet History of Rheumatoid Arthritis: NONE 2. Height: 5 ft. 4 in. 162.6 cm. Weight: 159.4 lb. oz. 72.303 kg. Patient's BMI: 27.3 3. Vital Signs: BP: 121/69 Pulse: 66 Resp: 14 Temp: 02 Sat: 98 ECG Mon: 4. Pain Intensity: 6 5. Fall Risk: Dizziness: N Needs help standing or walking: N Fallen in the last 3 months: N Fall risk comments: 6. Patient on Blood Thinner: None 7. History of Hypertension: N 8. Opioid Therapy greater than 6 weeks: Y Opiate Contract Signed: 04/09/17 9. Risk Assessment Tool Provided: low risk-3 10. Functional Assessment Tool: 11. Recreational Drug Use: Never Drug Type: Tobacco Use: Never Smoker Tobacco Type: Amount or Packs/day: How Many Years: Alcohol Use: Yes Frequency: Quant:
--- NOTE | 2019-01-27 10:19 | HPC ---
[facility] [address] [place] [address] PAIN MANAGEMENT CONSULTATION Name: DELFINA JENKINS [facility] [id number] Admission: 01/26/19 Attend Phys: Melinda Joe Discharge: Date of : 54 Report #: [id number] THIS REPORT FOR: //name// CC: Melinda Mcdanielsmilagroalvarado DATE OF SERVICE: 01/26/2019 CHIEF COMPLAINT: Chronic low back pain with severe L5 radiculopathy. HISTORY OF PRESENT ILLNESS: This is a very pleasant 68-year-old female who returns to the pain clinic today for refill of her medications that she uses to help treat her chronic low back pain with radiculopathy. The patient informed me that her spinal cord stimulator generator IPG is going to be replaced next week in [place] at [facility]. They determined that her Honeycutt device was not working correctly, changing the IPG. The patient informs me that her pain score is at 6/10 today. It is mostly located in her lower back and radiates down outer aspect of her left thigh into her calf. It is a sharp electrical tenderness and burning feeling. She rates it as 6/10 today, but is worse in the evening or walking and standing. Medications are very helpful as well as repositioning. The patient tells me since her spinal cord stimulator has not been working effectively, she has been taking an extra oxycodone a day to get by and is requesting that additional extra pill until she has her surgery next week. ALLERGIES: CONTRAST DYE, SULFA, SHELLFISH, IODINE, CODEINE AND REGLAN. CURRENT MEDICATIONS: Colchicine 0.6 mg daily, oxycodone 5 mg 4-5 times a day, methadone 5 mg 3 times a day, Mirapex 0.5 mg 3 times a day, Zyrtec, Xanax, Celebrex, Zegerid and Lexapro. PQRS: 1. She has a history of osteoarthritis in her hands, neck, feet and knees. Denies any rheumatoid arthritis. 2. Height is 5 feet 4 inches, weight is 159, BMI is 27. 3. VITAL SIGNS: Blood pressure 121/69, pulse is 69, respirations 14, oxygen sat is 98. 4. Pain score 6/10. 5. Denies dizziness, does not need help walking or standing, has not fallen in the last 3 months. 6. The patient is not on any blood thinners and does not take medicine for hypertension. 7. Opiate therapy is greater than 6 weeks; therefore, an opioid signed contract is on the chart. Her risk assessment tool is low. Functional assessment is 32/70. [address] [address] PAIN MANAGEMENT CONSULTATION Name: DELFINA JENKINS Room #: REG [facility] Car#: [id number] Admission: 01/26/19 Attend Phys: Melinda Joe Discharge: Date of : 54 Report #: [id number] 8. Recreational drug use, she denies. She is not a smoker and occasionally drinks alcohol. We did check the prescription monitoring system. The patient is filling appropriately for her medications that she is due to have those filled again today. PHYSICAL EXAMINATION: GENERAL: This is a 68-year-old female who appears her stated age, placing her current pain score at 6/10 today. She is alert and orientated,tearful at times today. HEENT: Normocephalic, atraumatic. Extraocular eye muscles are intact. MUSCULOSKELETAL: The patient is able to walk with an antalgic gait. She moves from sitting to standing with slight difficulty. Has pain that radiates from the lumbar spine down the lateral aspect of her left leg into her calf following an L5 dermatomal distribution. Lower extremity strength judged to be 5/5 in all major muscle groups. The patient also has tenderness in the lumbar spine area. IMPRESSION: 1. Chronic intractable low back pain, post-laminectomy syndrome with radiculopathy. 2. Spinal cord stimulator, Honeycutt device that is malfunctioning. 3. Management of high risk medications under terms of written opioid agreement. We reviewed the fact that opiate medications are being used to provide analgesia adequate to support activities of daily living, not attempting to achieve a specific pain score on the 0-10 Visual Analog Scale. The current opiate medications are providing sufficient analgesia to allow the patient to participate in activities of daily living. The patient is not exhibiting any aberrant behavior suggestive of drug diversion. The patient is not having any adverse reactions to medications. The patient is not suffering from daytime somnolence or mental acuity changes. The patient is managing opiate-induced constipation with appropriate kmll-nus-ngiiner agents and dietary considerations. The patient was counseled on concern for caution with operating a motor vehicle while using opiate medications. A physical exam was performed and the patient's functional status was evaluated. All patients with back pain were advised against the bed rest greater than 4 days and were advised to return to normal activities. Pain score assessment was noted and the treatment plan was reviewed with the patient. All current medications, both prescribed and OTC were reviewed and reconciled on the electronic medical record. Tobacco screening was accomplished and smoking cessation was advised when indicated. BMI was noted and diet/exercise modification was recommended for all patients following outside normal parameters. [address] [address] PAIN MANAGEMENT CONSULTATION Name: DELFINA JENKINS Room #: REG [facility]#: [id number] Admission: 01/26/19 Attend Phys: Melinda Joe Discharge: Date of : 54 Report #: [id number] I reviewed with the patient today their responsibilities to safeguard prescription medications, reviewed their responsibility to utilize medications only as prescribed by the physician. They are to seek and receive pain medications only from 1 physician group ( [facility]). They are to use 1 pharmacy and keep the clinic informed if they change pharmacies. Their responsibilities include making followup visits in a timely fashion and to avoid abrupt discontinuation of medication usage. Their responsibilities further include bringing their medications (bottles from the pharmacy with residual pills) to the visit for possible confirmation of pill counts and the patient understands it is their responsibility to submit to random drug screens to ensure both that the medications prescribed are present, and that no other controlled substances are present. All prescriptions provided today were generated electronically. PLAN: 1. We discussed treatment options with the patient today. 2. The patient will be having her Honeycutt IPG replaced next week at [facility] in [place], [place]. The patient has been requiring an extra pain pill a day to get to this surgery since her spinal cord stimulator device is not functioning properly, but shooting off intermittently. The patient has been tolerating 5 pills of breakthrough a day as well as her methadone 5 mg 3 times a day and denies any problems with constipation or daytime sleepiness. 3. Scripts given today for methadone 5 mg t.i.d., #90 for release today for an 8-week; oxycodone 5 mg, #150 for 1 month, then we will reduce back to 120 for the 4 and 8-week refills. 4. The patient will have her device placed next week. If she does get any additional pain pills from her surgeon, she will call and let us know. 5. We did discuss a left transforaminal in the future by Dr. Bud Rangel if her pain does not subside from this recent flare. She had good benefit from that injection a year ago by Dr. Rangel. 6. The patient will call for an appointment as needed. <ELECTRONICALLY SIGNED> By: Melinda Joe 01/27/19 1019 [id number] [id number] Melinda Joe /nt
== END ==
LOC: PAIN 06:43
DX: M54.16 Radiculopathy, lumbar region (principal); M96.1 Postlaminectomy syndrome, not elsewhere classified; Z88.8 Allergy status to other drugs, medicaments and biological substances; Z91.013 Allergy to seafood; Z79.899 Other long term (current) drug therapy; Z79.891 Long term (current) use of opiate analgesic

== ENCOUNTER → 2019-02-26 | Outpatient (CLI) | payer OTHER ==
[~2019-02-26] VITALS: Ht 162.6 cm; Wt 72.6 kg
--- NOTE | ~2019-02-26 | HPC ---
[facility] [address] [place] [address] PAIN MANAGEMENT CONSULTATION Name: DELFINA RAYGOZA [facility]: [facility] [id number] Admission: 02/26/19 ������������������ Attend Phys: Bud Rangel MD Discharge: ������������������ Date of : 54 Report #: [id number] THIS REPORT FOR: //name// CC: HUGO Rangel DATE OF SERVICE: 02/26/2019 Followup visit for chronic intractable low back pain with radiculopathy, status post laminectomy, status post spinal cord stimulator placement. The patient is here today with her , Dr. Paul Raygoza, to discuss additional medication management. She continues to struggle both physically and emotionally. She cried some while I was in the office today. Her complicated history is well documented throughout this record. She continues to complain of daily pain, 6 throughout the day, but at night, it gets vicious, 8-9/10 affecting her sleep. She is on methadone, which she believes has been helpful. Her dose currently is 5 mg 3 times daily. In addition, she is allowed to take oxycodone 5 mg up to 3-5 times daily. We have tried to back down, so she is on less breakthrough medication. She had recent surgery requiring an increase in daily dose. Today, she complains tearfully of lack of sleep. She generally goes to bed at 11:00 after taking her evening dose of methadone. She sleeps for about an hour and then wakens. She has to walk around in order to get some improvement and leans against the wall. At 2 a.m., she often times takes an additional breakthrough medication to help her go back to sleep and then falls asleep for a couple of hours. PQRS: 1. Positive for diffuse osteoarthritis involving hands, neck, knees and feet. 2. BMI is 27.5. 3. Blood pressure 116/64, heart rate 70, respirations 16. 4. Pain intensity 6/10 in the daytime, 8-9/10 in the evening. 5. She is a fall risk and has fallen in the last 3 months due to unusual weakness of the right leg. 6. No blood thinners. 7. No history of hypertension. 8. On an opioid agreement signed initially on 04/09/2017. 9. She has completed an opioid risk score and scores at a 3, [id number] risk for addiction. 10. Functional assessment score is 32 suggesting impacts of pain in multiple daily activities. She denies use of tobacco. She does occasionally drink [address] [address] PAIN MANAGEMENT CONSULTATION Name: DELFINA RAYGOZA Room #: REG [facility]#: [id number] Admission: 02/26/19 ������������������ Attend Phys: Bud Rangel MD Discharge: ������������������ Date of : 54 Report #: [id number] alcohol cautiously. PHYSICAL EXAMINATION: VITAL SIGNS: As noted above. She is tearful and depressed. She moves independently from sitting to standing position. Her gait is markedly antalgic. She swings her leg somewhat like someone with hip issues. There is weakness with hip flexion. Plantar and dorsiflexion are fine. Leg extension is fine. Sensation is altered throughout the L4-L5 distribution of the left leg. Deep tendon reflexes are diminished at knee and ankle. IMPRESSION: 1. Chronic intractable pain syndrome, post-laminectomy. She likely has an L5, perhaps L4 nerve injury. She woke in the recovery room with this pain. 2. Spinal cord stimulator, which is not providing the hope for relief. 3. Management of high-risk medications under terms of written opioid agreement. 4. Persistent depression. RECOMMENDATIONS: I would like to increase her methadone. We will slowly increase it from 15 to 30 mg daily. Discussed this at length with Dr. Raygoza as well as with the patient. They are in agreement that this trial is reasonable. Her depression, I think, will be aided by sleep. She is currently on celecoxib as a co-analgesic and Lexapro for her depression. She periodically uses alprazolam, but 0.125 is such a low dose. I do not believe that it will substantially create a toxic overdose situation for her with opioids. We briefly discussed intrathecal therapies today. She has had somewhat surgery recently. I think we will try to manage her with medication. Followup visit planned in 1 month. She has my phone number and will call if there are questions. ��������������������������������������������� ���������������������������������������� By: ��������������������������������������������� 1634 0116 Bud Rangel MD /nt
[2019-02-26 09:41] VITALS: BP 116/64
--- NOTE | 2019-02-26 09:55 | NUR ---
Pain Clinic Assessment: 1. History of Osteoarthritis: hands,knees,neck, and feet History of Rheumatoid Arthritis: NONE 2. Height: 5 ft. 4 in. 162.6 cm. Weight: 160.0 lb. oz. 72.576 kg. Patient's BMI: 27.5 3. Vital Signs: BP: 116/64 Pulse: 70 Resp: 16 Temp: 02 Sat: 96 ECG Mon: 4. Pain Intensity: 6 IN DAY 8-9 HS 5. Fall Risk: Dizziness: N Needs help standing or walking: N Fallen in the last 3 months: Y Fall risk comments: 6. Patient on Blood Thinner: None 7. History of Hypertension: N 8. Opioid Therapy greater than 6 weeks: Y Opiate Contract Signed: 04/09/17 9. Risk Assessment Tool Provided: low risk-3 10. Functional Assessment Tool: 11. Recreational Drug Use: Never Drug Type: Tobacco Use: Never Smoker Tobacco Type: Amount or Packs/day: How Many Years: Alcohol Use: Yes Frequency: Quant:
== END ==
LOC: PAIN 06:40
DX: M54.16 Radiculopathy, lumbar region (principal); G89.4 Chronic pain syndrome; M96.1 Postlaminectomy syndrome, not elsewhere classified; F32.9 Major depressive disorder, single episode, unspecified; Z79.891 Long term (current) use of opiate analgesic

== ENCOUNTER → 2019-03-23 | Outpatient (CLI) | payer OTHER ==
[~2019-03-23] VITALS: Ht 162.6 cm; Wt 73.9 kg
[2019-03-23 11:03] VITALS: BP 104/69
--- NOTE | 2019-03-23 11:09 | NUR ---
Pain Clinic Assessment: 1. History of Osteoarthritis: hands,knees,neck, and feet History of Rheumatoid Arthritis: NONE 2. Height: 5 ft. 4 in. 162.6 cm. Weight: 163.0 lb. oz. 73.936 kg. Patient's BMI: 28.0 3. Vital Signs: BP: 104/69 Pulse: 63 Resp: 12 Temp: 02 Sat: 97 ECG Mon: 4. Pain Intensity: 8-10 NOC 4-5 DAY 5. Fall Risk: Dizziness: N Needs help standing or walking: Y Fallen in the last 3 months: N Fall risk comments: 6. Patient on Blood Thinner: None 7. History of Hypertension: N 8. Opioid Therapy greater than 6 weeks: Y Opiate Contract Signed: 04/09/17 9. Risk Assessment Tool Provided: low risk-3 10. Functional Assessment Tool: 11. Recreational Drug Use: Never Drug Type: Tobacco Use: Never Smoker Tobacco Type: Amount or Packs/day: How Many Years: Alcohol Use: Yes Frequency: Daily Quant: WINE
--- NOTE | 2019-03-26 16:52 | HPC ---
[facility] [address] [address] PAIN MANAGEMENT CONSULTATION Name: GREGORYDELFINA G Room #: REG [facility] Chrissie.#: [id number] Admission: 03/23/19 Attend Phys: Bud Rangel MD Discharge: Date of : 54 Report #: [id number] THIS REPORT FOR: //name// CC: Frank Rangel DATE OF SERVICE: 03/23/2019 REASON FOR VISIT: Followup visit for severe intractable low back pain with radiculopathy in the left L5-S1 distribution. SUBJECTIVE: The patient returns to pain clinic today with her , Dr. Paul Raygoza. We have been attempting to provide maximal relief with medications. She has tried multiple nonopioid analgesic medication regimens without success and has responded in part to oxycodone and methadone. I have gradually allowed her to increase her dose to 20 mg of methadone daily along with oxycodone for breakthrough. Her current morphine milligram equivalency is 60 MME of methadone, 60 MME of oxycodone. Despite this, she complains bitterly of pain and cried throughout her visit today. She can no longer do stairs. She is not sleeping more than one solid hour per night. She is suffering from severe depression. The pain is enough to limit her ambulation. She can walk no more than a few minutes before she is looking for some place to sit down. She is unable to enjoy even the simplest activities of daily living. PHYSICAL EXAMINATION: She is 5 feet 4 inches, 163 pounds, BMI of 28, blood pressure 104/69, heart rate 63, respirations 12. Pain intensity is 8-10 at night, 4-5 during the day. She can independently stand, but has to walk a few steps before she can straighten. She has pain across her low back and tenderness in her spine. She has positive straight leg raising discomfort on the left consistent with her chronic L5 neuropathy and radiculopathy. She has some hypersensitivity. Generalized weakness is noted in the left lower extremity. IMPRESSION: 1. Chronic severe left L5 radiculopathy, nerve injury status post laminectomy. 2. Failure of spinal cord stimulator therapy. 3. Failure of medication management with multiple nonopioid medications as well as failure of high dose opioid therapy above 100 MME. 4. Persistent worsening depression. 5. Insomnia. PLAN: I had a 20-30 minute discussion at the conclusion of her visit today with the patient and her regarding intrathecal therapies. Given her extensive description of the process of trialing, implant, recovery and drug titration. While making no promises I have offered this as the alternate to current regimens. [address] [address] PAIN MANAGEMENT CONSULTATION Name: DELFINA RAYGOZA Room #: REG [facility] Car#: [id number] Admission: 03/23/19 Attend Phys: Bud Rangel MD Discharge: Date of : 54 Report #: [id number] We discussed an improvement in her response if we can taper her opioids prior to her trial and placement, although this is extremely challenging in someone who is already so miserable on opioids to begin with. Multiple questions were asked and answered. We discussed about other hopeful options. Treatment for depression is ongoing with counseling and antidepressant medications. A consultation was sent to Dr. Ronen Panda and his team to schedule for trial and I believe that they are ready to make this next step. <ELECTRONICALLY SIGNED> By: Bud Rangel MD 03/26/19 1652 [id number] [id number] Bud Rangel MD /nt
== END ==
LOC: PAIN 06:32
DX: M47.27 Other spondylosis with radiculopathy, lumbosacral region (principal); F32.9 Major depressive disorder, single episode, unspecified; G47.00 Insomnia, unspecified

== ENCOUNTER → 2019-04-20 | Outpatient (CLI) | payer OTHER ==
[~2019-04-20] VITALS: Ht 165.1 cm; Wt 73.0 kg
--- NOTE | ~2019-04-20 | HPC ---
[facility] [place] [address] PAIN MANAGEMENT CONSULTATION Name: DELFINA RAYGOZA Room #: REG [facility].#: [id number] Admission: 04/20/19 Attend Phys: Bud Rangel MD Discharge: Date of : 54 Report #: [id number] THIS REPORT FOR: //name// CC: Frank Rangel DATE OF SERVICE: 04/20/2019 Followup visit for chronic intractable pain. The patient is in clinic today for relatively short visit with her , Dr. Paul Raygoza. She has ongoing pain, which she scores at a 3-4/10. Her functional assessment score is 32/70. She is at low risk for addiction by the opioid risk scoring of 3. She is on an opioid agreement. We talked about his intrathecal infusion. I have her scheduled to see Dr. Ronen Panda for consultation. Currently, she is on methadone 15 mg a day. She takes it divided doses 4 times daily, 5 in the morning, 2.5 at 11, 2.5 at 5 p.m. and another 5 mg at bedtime. Her oxycodone has been taking roughly on a schedule morning, noon, 5:00 and then at bedtime. Although she has been stable, they were asking for breakthrough medicine. I am going to encourage them to try and get buy on 120 oxycodone tablets perhaps taking a half a tablet at different times during the day. She cried again during her office visit. She is pessimistic and depressed. She discusses a scheduled trip to [place] over 6 months away and says that she is not sure if she will be able to make it. All part of the psychosocial continuing issues associated with the chronic pain. Pain continues to be very consistent in chronic left L5 neuropathy and radiculopathy that has been present since her laminectomy and nerve injury. She continues to use her spinal cord stimulator, but it certainly is underwhelming in its effects. IMPRESSION: 1. Chronic severe left L5 radiculopathy nerve injury, status post laminectomy. 2. Failure of spinal cord stimulator therapy. 3. Ongoing severe depression and insomnia. 4. Medication management with polypharmacy as well as opioid medication methadone and oxycodone. Both, she and her , Dr. Raygoza believe that [address] [address] PAIN MANAGEMENT CONSULTATION Name: DELFINA RAYGOZA Room #: REG [facility] Chrissie.#: [id number] Admission: 04/20/19 Attend Phys: Bud Rangel MD Discharge: Date of : 54 Report #: [id number] is providing meaningful pain relief and would be worse without it. PLAN: I renewed 2 months of medication. I would like her to remain stable on her current MME of 105. I am hopeful that Dr. Panda will be willing to take her on for intrathecal therapy. We may consider an initial trial with Prialt given her current opioid tolerance. By: [id number] Bud Rangel MD /nathan
[2019-04-20 12:38] VITALS: BP 122/71
--- NOTE | 2019-04-20 12:42 | NUR ---
Pain Clinic Assessment: 1. History of Osteoarthritis: hands,knees,neck, and feet History of Rheumatoid Arthritis: NONE 2. Height: 5 ft. 5 in. 165.1 cm. Weight: 161.0 lb. oz. 73.029 kg. Patient's BMI: 26.8 3. Vital Signs: BP: 122/71 Pulse: 72 Resp: 16 Temp: 02 Sat: 98 ECG Mon: 4. Pain Intensity: 3-4 5. Fall Risk: Dizziness: N Needs help standing or walking: N Fallen in the last 3 months: N Fall risk comments: 6. Patient on Blood Thinner: None 7. History of Hypertension: N 8. Opioid Therapy greater than 6 weeks: Y Opiate Contract Signed: 04/09/17 9. Risk Assessment Tool Provided: low risk-3 10. Functional Assessment Tool: 11. Recreational Drug Use: Never Drug Type: Tobacco Use: Never Smoker Tobacco Type: Amount or Packs/day: How Many Years: Alcohol Use: Yes Frequency: Quant:
== END ==
LOC: PAIN 06:51
DX: M54.16 Radiculopathy, lumbar region (principal); F32.9 Major depressive disorder, single episode, unspecified; G47.00 Insomnia, unspecified

== ENCOUNTER → 2019-06-18 | Outpatient (CLI) | payer OTHER ==
[~2019-06-18] VITALS: Ht 165.1 cm; Wt 76.4 kg
--- NOTE | ~2019-06-18 | HPC ---
[facility] [place] [address] PAIN MANAGEMENT CONSULTATION Name: DELFINA RAYGOZA Room #: REG [facility] M.R.#: [id number] Admission: 06/18/19 Attend Phys: Bud Rangel MD Discharge: Date of : 54 Report #: [id number] THIS REPORT FOR: //name// CC: Frakn Rangel DATE OF SERVICE: 06/18/2019 Followup visit for chronic pain, left neuropathy and radiculopathy, status post laminectomy and nerve injury. The patient returns to pain clinic today for a change of her intrathecal pump medication. This is the first time I have seen her since she had her pump placed by Dr. Panda. I have spoken with Sandra Cheung APRN regarding her current pump settings and medication. She has seen improvement in the pain, particularly radiating pain in her left hip that was excruciating and burning. She is having morphine-related edema of the lower extremities. She has 2-3+ pitting edema that is all [id number] and bilateral. She had a small amount of trace edema prior to performance of the procedure. We discussed this finding in some detail. Etiology has been questioned over the years, but it is clearly a side effect of morphine and also seen with hydromorphone. We discussed the transition to fentanyl, which seems to have less edema and that change can be fairly dramatic. I would also like to add a small amount of clonidine to her infusate which has been shown to be helpful, particularly for neuropathic pain. Our goal is to provide her with the best pain relief through the intrathecal pump and then to begin tapering her methadone and oxycodone. She is highly sensitive to medications. Methadone and oxycodone have been helpful in allowing her to get out of the house, but she reports that if she misses a dose of oxycodone for even a couple of hours, she has what she describes withdrawal symptoms. She has been through a lot. She appears tired, worn out, depressed and frustrated. PQRS REVIEW: 1. Positive for osteoarthritis involving hands, neck, feet. 2. Vital signs: Blood pressure 120/45, heart rate 72, respirations 14, O2 sat 99, BMI is 28.0. Pain intensity 6/10. She does not appear to be a fall risk and has not fallen recently. She is on no blood thinning medications [place] [address] PAIN MANAGEMENT CONSULTATION Name: DELFINA RAYGOZA [facility] [id number] Admission: 06/18/19 Attend Phys: Bud Rangel MD Discharge: Date of : 54 Report #: [id number] treated for hypertension. She has an opioid agreement, which was signed as far back as 2016 and her risk assessment score is 3, considered low risk for addiction. Her functional assessment score is 32/70. So, she seems to be functioning a bit better. Scores have been higher in the past. She denies use of tobacco, drinks alcohol only occasionally under social settings and avoids combination of alcohol with her short-acting opioids. IMPRESSION: 1. Chronic intractable left radicular pain with nerve injury status post laminectomy. 2. Failure of spinal cord stimulation therapy. 3. Failure of medication management with multiple nonopioid medications as well as failure with high-dose opioid therapy above 100 mm. 4. Chronic and established situational depression. She has been going through this since her surgery several years ago. 5. Management of intrathecal infusion pump. I was optimistic and hopeful today with her and with her , Dr. Raygoza. Hopefully, we can find a good regimen of medication that will be effective for her. Today's transition to fentanyl will be done with a relatively low dose and we can titrate that dose upwards as necessary. I plan to start her at 75 mcg of fentanyl per day along with 25 mcg of clonidine. I would like to see her back after the bridge bolus in 1-2 weeks when we will have a chance to assess the effect on side effects as well as underlying pain. PROCEDURE: Refill and reprogram intrathecal infusion pump. Skin was prepped with ChloraPrep. 22-gauge non-coring needle advanced in the pump. Old medication removed and discarded. We expected 37 and got 36.5. It was discarded per protocol. The pump was refilled with a total of 40 mL of fentanyl and clonidine and a reprogramming session with bridge bolus was performed. A copy of the reprogramming information was reviewed prior to discharge. I did not add the second drug to her current settings, but that will not change the bridge bolus and we will add the clonidine to her programming information at followup visit. I did write the doses down. Confirmed by hand calculation. New medications were ordered for 1 month, methadone 5 mg 1 tablet 3 times daily and oxycodone/acetaminophen 10/325, 120 tablets. We would like to taper this once we see better control of her pain. By: [id number] Bud Rangel MD /nt
[2019-06-18 09:47] VITALS: BP 120/45
--- NOTE | 2019-06-18 10:01 | NUR ---
Pain Clinic Assessment: 1. History of Osteoarthritis: hands,knees,neck, and feet History of Rheumatoid Arthritis: NONE 2. Height: 5 ft. 5 in. 165.1 cm. Weight: 168.4 lb. oz. 76.386 kg. Patient's BMI: 28.0 3. Vital Signs: BP: 120/45 Pulse: 72 Resp: 14 Temp: 02 Sat: 99 ECG Mon: 4. Pain Intensity: 6 5. Fall Risk: Dizziness: N Needs help standing or walking: N Fallen in the last 3 months: N Fall risk comments: 6. Patient on Blood Thinner: None 7. History of Hypertension: N 8. Opioid Therapy greater than 6 weeks: Y Opiate Contract Signed: 04/09/17 9. Risk Assessment Tool Provided: low risk-3 10. Functional Assessment Tool: 11. Recreational Drug Use: Never Drug Type: Tobacco Use: Never Smoker Tobacco Type: Amount or Packs/day: How Many Years: Alcohol Use: Yes Frequency: Special Occasions Quant: 1-2
== END | disposition home or self-care (01) ==
LOC: PAIN 06:45
DX: Z45.1 Encounter for adjustment and management of infusion pump (principal); G89.29 Other chronic pain; M54.16 Radiculopathy, lumbar region; G62.9 Polyneuropathy, unspecified; M19.90 Unspecified osteoarthritis, unspecified site; F32.89 Other specified depressive episodes; Z98.890 Other specified postprocedural states; Z79.899 Other long term (current) drug therapy; Z79.891 Long term (current) use of opiate analgesic; Z91.041 Radiographic dye allergy status; Z88.2 Allergy status to sulfonamides; Z88.6 Allergy status to analgesic agent; Z88.8 Allergy status to other drugs, medicaments and biological substances

== ENCOUNTER → 2019-06-26 | Outpatient (CLI) | payer OTHER ==
[~2019-06-26] VITALS: Ht 162.6 cm; Wt 73.5 kg
[~2019-06-26] MED LIST changes: +MINOCYCLINE HC100 M2 PO
--- NOTE | ~2019-06-26 | HPC ---
[facility] [address] [address] [address] PAIN MANAGEMENT CONSULTATION Name: GREGORYDELFINA G Room #: REG [facility] Chrissie.#: [id number] Admission: 06/26/19 Attend Phys: Bud Rangel MD Discharge: Date of : 54 Report #: [id number] THIS REPORT FOR: //name// CC: HUGO Rangel DATE OF SERVICE: 06/26/2019 REASON FOR VISIT: Followup visit for adjustment of intrathecal infusion pump. SUBJECTIVE: The patient is doing better. Her pain is improved and she has had a substantial reduction in the edema that developed with her use of intrathecal morphine. As hoped, the transition to fentanyl/clonidine has reduced her fluid weight by about 6 pounds in the last 4 days. The peripheral edema is dissipating. There is one concern. She has developed a very small punctate pustule at the far distal aspect of her scar. This may be a small stitch abscess forming. There is a slight amount of erythema around it. There is no fluctuance. She is not currently on antibiotics. Her history of postoperative infections is documented throughout the record. We are concerned and I consulted with Infectious Disease specialist as well as a strategic planning specialist to decide best course of action and proper antibiotic induration. We intend to initiate minocycline 100 mg b.i.d. We will watch closely over the next couple of days. Proper management of the wound was discussed as well. Suggestion by the strategic planning specialist was to paint the area also with Betadine, a couple of times a day. All pressure will be left off the area, nothing to irritate or disturb the area. We did do a slight reprogramming. I did not add the clonidine to her programming information, although she was receiving it as of Saturday. I added that to the program to make it correct and a bridge bolus was enacted over 25 hours and then will be able to identify both medications properly. Finally, we added a PTM to her regimen. The PTM was set to provide an additional 15 mcg of fentanyl and clonidine 3 mcg. This allows her to increase her medication by nearly 100% with the increase in basal rate. She tolerated the initial settings without difficulty. She is opioid tolerant. She takes oral opioids as well including methadone. I feel safe and comfortable in providing her with this infusion. After she was discharged from the clinic, I reviewed her numbers. Her clonidine dose, even though we checked, was set at 225 mcg/mL. It should have been 75 mcg/mL. I will change that at her followup visit. Her daily dose of clonidine [address] [address] PAIN MANAGEMENT CONSULTATION Name: GREGORYDELFINA G [facility] #: [facility] [id number] Admission: 06/26/19 Attend Phys: Bud Rangel MD Discharge: Date of : 54 Report #: [id number] will actually be lower than listed. Followup visit is scheduled in 1-2 weeks. By: [id number] Bud Rangel MD /nathan
[2019-06-26 09:40] VITALS: BP 107/59
--- NOTE | 2019-06-26 09:57 | NUR ---
Pain Clinic Assessment: 1. History of Osteoarthritis: hands,knees,neck, and feet History of Rheumatoid Arthritis: NONE 2. Height: 5 ft. 4 in. 162.6 cm. Weight: 162.0 lb. oz. 73.483 kg. Patient's BMI: 27.8 3. Vital Signs: BP: 107/59 Pulse: 74 Resp: 14 Temp: 02 Sat: 98 ECG Mon: 4. Pain Intensity: 4 5. Fall Risk: Dizziness: N Needs help standing or walking: N Fallen in the last 3 months: N Fall risk comments: 6. Patient on Blood Thinner: None 7. History of Hypertension: N 8. Opioid Therapy greater than 6 weeks: Y Opiate Contract Signed: 04/09/17 9. Risk Assessment Tool Provided: low risk-3 10. Functional Assessment Tool: 11. Recreational Drug Use: Never Drug Type: Tobacco Use: Never Smoker Tobacco Type: Amount or Packs/day: How Many Years: Alcohol Use: Yes Frequency: Quant:
== END | disposition home or self-care (01) ==
LOC: PAIN 06:50
DX: Z45.1 Encounter for adjustment and management of infusion pump (principal); G89.29 Other chronic pain; Z98.890 Other specified postprocedural states; Z91.041 Radiographic dye allergy status; Z88.2 Allergy status to sulfonamides; Z88.6 Allergy status to analgesic agent; Z79.899 Other long term (current) drug therapy; Z79.891 Long term (current) use of opiate analgesic

== ENCOUNTER → 2019-07-13 | Outpatient (CLI) | payer OTHER ==
[~2019-07-13] VITALS: Ht 165.1 cm; Wt 75.8 kg
[~2019-07-13] MED LIST changes: +SPIRONOLACTONE25 MG PO
--- NOTE | ~2019-07-13 | HPC ---
[facility] [address] [place] [address] [address] PAIN MANAGEMENT CONSULTATION Name: GREGORYDELFINA Ramon Room #: REG [facility] Chrissie.#: [id number] Admission: 07/13/19 Attend Phys: Bud Rangel MD Discharge: Date of : 54 Report #: [id number] THIS REPORT FOR: //name// CC: HUGO Rangel DATE OF SERVICE: 07/13/2019 Followup visit for complicated complex pain syndrome with L5 radiculopathy. The patient returns to pain clinic today for adjustment of intrathecal pump. She has fentanyl and clonidine infusing. She has a slight increase in her edema, but the pain is somewhat better. We have decided that we will alter her infusion to a flex program. This will mean that she will no longer use her PTM device. Most of her pain is at nighttime. With the PTM device, her daily dose has been close to the maximum of 148 mcg of fentanyl. I am going to increase the overall daily dose to 163, which is about 10% overall. We will also be increasing the clonidine by an equal amount. The calculated amount will be 54 mcg per day. She remains fearful of movement and complains of pain. She does not sleep well. She admits to a type of seasonal affective disorder, would like to go to [place] for a vacation with her . I wholeheartedly support this. This should be therapeutic for her. She continues on her oral medicines, which we had hoped that we would be able to taper at this point. She has not been able to do that, but we will work on that and I think that is something that she should seek for also during her time away when she is in the nice dry climate in [place]. I shared the name of Jeimy Weinstein in [place] should something arise where they need help and she is one of the preeminent intrathecal pump physicians in the country, highly respected and a friend. I could reach out to her if necessary. PHYSICAL EXAMINATION: Today, she looks good. Alert and oriented. No signs of overmedication. She does appear to be slightly depressed. Examination of the lower extremities reveals 1+ edema bilaterally in the lower extremities, slightly up from her last visit. IMPRESSION: 1. Chronic intractable low back pain with post-laminectomy radiculopathy secondary to L5 nerve injury, status post laminectomy. 2. Management of intrathecal infusion pump. 3. Chronic depression. [address] [address] PAIN MANAGEMENT CONSULTATION Name: GREGORYDELFINA Room #: REG [facility]#: [id number] Admission: 07/13/19 Attend Phys: Bud Rangel MD Discharge: Date of : 54 Report #: [id number] PROCEDURE: I reprogrammed the intrathecal pump. Programming information was correctly reviewed by myself and the nurse. Copy provided to the patient. Prescriptions provided for her current oral medications, which we will continue to work on tapering as we increase her intrathecal medicines. By: [id number] Bud Rangel MD /nt
[2019-07-13 13:11] VITALS: BP 101/62
--- NOTE | 2019-07-13 13:22 | NUR ---
Pain Clinic Assessment: 1. History of Osteoarthritis: hands,knees,neck, and feet History of Rheumatoid Arthritis: NONE 2. Height: 5 ft. 5 in. 165.1 cm. Weight: 167.0 lb. oz. 75.751 kg. Patient's BMI: 27.8 3. Vital Signs: BP: 101/62 Pulse: 72 Resp: 14 Temp: 02 Sat: 98 ECG Mon: 4. Pain Intensity: 3 5. Fall Risk: Dizziness: N Needs help standing or walking: N Fallen in the last 3 months: N Fall risk comments: 6. Patient on Blood Thinner: None 7. History of Hypertension: N 8. Opioid Therapy greater than 6 weeks: Y Opiate Contract Signed: 04/09/17 9. Risk Assessment Tool Provided: low risk-3 10. Functional Assessment Tool: 11. Recreational Drug Use: Never Drug Type: Tobacco Use: Never Smoker Tobacco Type: Amount or Packs/day: How Many Years: Alcohol Use: Yes Frequency: Daily Quant: GLASS OF WINE
== END | disposition home or self-care (01) ==
LOC: PAIN 06:45
DX: Z45.1 Encounter for adjustment and management of infusion pump (principal); G89.29 Other chronic pain; M54.16 Radiculopathy, lumbar region; M96.1 Postlaminectomy syndrome, not elsewhere classified; F32.89 Other specified depressive episodes; Z98.890 Other specified postprocedural states; Z79.899 Other long term (current) drug therapy; Z91.041 Radiographic dye allergy status; Z88.2 Allergy status to sulfonamides; Z88.6 Allergy status to analgesic agent

== ENCOUNTER → 2019-07-24 | Outpatient (CLI) | payer OTHER ==
[~2019-07-24] VITALS: Ht 167.6 cm; Wt 75.6 kg
[2019-07-24 09:33] VITALS: BP 120/61
--- NOTE | 2019-07-24 09:47 | NUR ---
Pain Clinic Assessment: 1. History of Osteoarthritis: hands,knees,neck, and feet History of Rheumatoid Arthritis: NONE 2. Height: 5 ft. 6 in. 167.6 cm. Weight: 166.6 lb. oz. 75.569 kg. Patient's BMI: 26.9 3. Vital Signs: BP: 120/61 Pulse: 69 Resp: 20 Temp: 02 Sat: 98 ECG Mon: 4. Pain Intensity: 3 5. Fall Risk: Dizziness: N Needs help standing or walking: N Fallen in the last 3 months: N Fall risk comments: 6. Patient on Blood Thinner: None 7. History of Hypertension: N 8. Opioid Therapy greater than 6 weeks: Y Opiate Contract Signed: 04/09/17 9. Risk Assessment Tool Provided: low risk-3 10. Functional Assessment Tool: 11. Recreational Drug Use: Never Drug Type: Tobacco Use: Never Smoker Tobacco Type: Amount or Packs/day: How Many Years: Alcohol Use: Yes Frequency: Quant:
--- NOTE | 2019-07-27 08:24 | HPC ---
[facility] [address] [address] PAIN MANAGEMENT CONSULTATION Name: DELFINA JENKINS Room #: REG [facility] M.R.#: [id number] Admission: 07/24/19 Attend Phys: Melinda Joe Discharge: Date of : 54 Report #: [id number] THIS REPORT FOR: cc: Frank Alvarez MD,Frank Joe,Melinda WELLS ~ THIS REPORT FOR: //name// CC: Melinda Alvarez DATE OF SERVICE: 07/24/2019 CHIEF COMPLAINT: Chronic pain syndrome with L5 radiculopathy. HISTORY OF PRESENT ILLNESS: The patient returns to the pain clinic today for a discussion about her decrease in medications and hopefully an increase in her intrathecal pump. The patient continues to slowly wean down off her methadone, which has been causing significant edema in her lower extremities. She has 2+ edema from her knees down bilaterally today. She is getting ready to travel to [place] tomorrow and would like her pump increased prior to leaving. Today, she is reporting a pain score of 3/10. Pain is located in her low back and left hip that is a burning, sharp pain. It is worse with lying down and walking. She does feel that her pump has been beneficial in controlling some of her pain. ALLERGIES: CONTRAST DYE, SULFA, SHELLFISH, IODINE, CODEINE, REGLAN, AND MORPHINE. CURRENT LIST OF MEDICATIONS: Spironolactone 25 mg daily, oxycodone 10/325 p.r.n., methadone 2.5 mg 3 times a day, 5 mg 1 time a day, Mirapex, rizatriptan, Zofran, Flonase, Zyrtec, alprazolam, Benadryl, Celebrex, omeprazole, and Lexapro. PATIENT'S PQRS: 1. She has arthritic changes in her hands, knees, neck, and feet. Denies any rheumatoid arthritis. 2. Height is 5 feet 6 inches, weight is 166, and BMI is 26. 3. Vital signs 120/61, pulse is 69, respirations 20, oxygen sat is 98. 4. Pain score is 3/10. 5. Denies dizziness, does not need help walking or standing, has not fallen in the last 3 months. 6. The patient is not on any blood thinners or medicines for hypertension. 7. Opiate therapy is greater than 6 weeks; therefore, an opioid signed contract is on the chart. Risk assessment tool is low. Functional assessment is 32/70. 8. Recreational drug use, she denies. She is not a smoker, but occasionally drinks alcohol. [address] [address] PAIN MANAGEMENT CONSULTATION Name: DELFINA JENKINS Room #: REG [facility] Car#: [id number] Admission: 07/24/19 Attend Phys: Melinda Joe Discharge: Date of : 54 Report #: [id number] PHYSICAL EXAMINATION: GENERAL: This is alert and orientated 68-year-old female with no signs of overmedication. She is placing her pain score at 3/10 today. HEENT: Normocephalic, atraumatic. Extraocular eye muscles are intact. Mucous membranes are moist. MUSCULOSKELETAL: She has 2+ edema bilaterally in her lower extremities. Her pain radiates from her lower back into her legs. Lower extremity strength judged to be 5/5 in all major muscle groups. IMPRESSION: 1. Chronic intractable low back pain, post-laminectomy. 2. Lumbar radiculopathy at the L5 nerve root. 3. Management of intrathecal infusion pump. 4. Chronic depression. 5. Procedure: Intrathecal pump adjustment. We will increase her intrathecal pump by 10%. This patient is on a flex program currently. We will increase her overall daily dose from 163.50 mcg per day to 179.9 mcg per day of fentanyl. With this change, her clonidine will increase as well. her total daily dose of clonidine is 59.96. We did encourage the patient to monitor her blood pressure. Today, her blood pressure is 120/61. She has access to a machine at home, so she will take her blood pressure daily to monitor. Plan 1. We encouraged the patient to continue to decrease her methadone by 2.5. She has been decreasing this weekly. I encouraged the patient she may be able to do this more often than every 7 days, but she will attempt to do this slowly dropping one dose as she feels she is able. 2. The patient is leaving for [place], [place] tomorrow morning. I encouraged her to wear compression stockings and to make sure she is ambulatory on the plane when she is able and to walk when she is in [place] on her layover to help try and reduce her swelling that will be increased with her flight, also encouraged her to take her spironolactone. 3. The patient is reminded that she does have Dr. Jeimy Weinstein's number in [place], [place], if something may arise and she needs to seek medical attention. 4. We adjusted her refill date for her next refill due to the changes in her pump today. She will be seen on 08/14/2019. The patient is seen today in collaboration with Dr. Bud Rangel. <ELECTRONICALLY SIGNED> By: Melinda Joe 07/27/19 0824 [id number] Melinda watt
== END | disposition home or self-care (01) ==
LOC: PAIN 08:54
DX: Z45.1 Encounter for adjustment and management of infusion pump (principal); M54.16 Radiculopathy, lumbar region; G89.4 Chronic pain syndrome; M96.1 Postlaminectomy syndrome, not elsewhere classified; F32.89 Other specified depressive episodes; Z98.890 Other specified postprocedural states; Z79.891 Long term (current) use of opiate analgesic; Z91.041 Radiographic dye allergy status; Z88.2 Allergy status to sulfonamides; Z88.8 Allergy status to other drugs, medicaments and biological substances; Z79.899 Other long term (current) drug therapy

== ENCOUNTER → 2019-08-13 | Outpatient (CLI) | payer OTHER ==
[~2019-08-13] VITALS: Ht 167.6 cm; Wt 75.3 kg
--- NOTE | ~2019-08-13 | HPC ---
[facility] [place] [address] [address] [place] [address] PAIN MANAGEMENT CONSULTATION Name: DELFINA JENKINS Room #: REG [facility]..#: [id number] Admission: 08/13/19 Attend Phys: Bud Rangel MD Discharge: Date of : 54 Report #: [id number] THIS REPORT FOR: cc: Frank Alvarez MD, Bruce H. MD Morgan, Richard L. MD ~ CC: FRANK Rangel DATE OF SERVICE: 08/13/2019 Followup for management of chronic L5 neuropathy/radiculopathy, status post laminectomy with decompression. The patient returns to pain clinic today to refill her intrathecal infusion pump. We have made adjustments in her medication. She has a combination of fentanyl and clonidine. She is on a complex infusion that provides for higher dose at bedtime. We decided that we are going to take her off of that, place her on a PTM that she will have additional medicines she can use during the evening. New medications are not needed. She has methadone and oxycodone remaining from prescriptions provided on 07/13/2019. She and her were able to go to [place] and the trip was enjoyable. Pain today is 4/10, radiates through her left hip, left leg and into her foot. Follows L5 distribution. It is burning. PHYSICAL EXAMINATION: GENERAL: Pleasant, alert, oriented and anxious. VITAL SIGNS: Blood pressure 135/75, heart rate 71, respirations 18, O2 sat 98%. BMI 27.0. Pump is in the right lower quadrant, nontender, healing nicely. IMPRESSION: 1. Chronic neuropathic pain with failure of spinal cord stimulator. Oral medications, physical therapy. 2. Management of intrathecal infusion pump with refill and adjustment. PROCEDURE: Skin was prepped with ChloraPrep. A 22-gauge non-coring needle advanced in pump. Old medication removed and discarded. It was discarded per protocol. Reprogramming session was performed. Medication, fentanyl 225 mcg/mL, clonidine 75 mcg/mL. The flex program was changed to a simple continuous 200 mcg per day, which amounts to a 20% increase in her basal. In [address] [address] PAIN MANAGEMENT CONSULTATION Name: GREGORYDELFINA G Room #: REG [facility] Chrissie.#: [id number] Admission: 08/13/19 Attend Phys: Bud Rangel MD Discharge: Date of : 54 Report #: [id number] addition to that, I provided her with bolus doses, which she can use at her discretion of 20 mcg with a 2-hour lockout interval, maximum increasing up to 315 mcg of fentanyl and 66 mcg of clonidine. We will make clear that these are discretionary boluses and she was instructed to use it only as needed. No new medications were ordered. Programming information was checked for accuracy and a copy provided to the patient. Follow up as needed. By: [id number] MD alysa Hahn
[2019-08-13 10:27] VITALS: BP 114/78
--- NOTE | 2019-08-13 10:34 | NUR ---
Pain Clinic Assessment: 1. History of Osteoarthritis: hands,knees,neck, and feet History of Rheumatoid Arthritis: NONE 2. Height: 5 ft. 6 in. 167.6 cm. Weight: 166.0 lb. oz. 75.297 kg. Patient's BMI: 26.8 3. Vital Signs: BP: 114/78 Pulse: 63 Resp: 14 Temp: 02 Sat: 100 ECG Mon: 4. Pain Intensity: 4 AVG 5. Fall Risk: Dizziness: N Needs help standing or walking: N Fallen in the last 3 months: N Fall risk comments: 6. Patient on Blood Thinner: None 7. History of Hypertension: N 8. Opioid Therapy greater than 6 weeks: Y Opiate Contract Signed: 04/09/17 9. Risk Assessment Tool Provided: low risk-3 10. Functional Assessment Tool: 11. Recreational Drug Use: Never Drug Type: Tobacco Use: Never Smoker Tobacco Type: Amount or Packs/day: How Many Years: Alcohol Use: Yes Frequency: Quant:
== END | disposition home or self-care (01) ==
LOC: PAIN 06:50
DX: Z45.1 Encounter for adjustment and management of infusion pump (principal); G89.29 Other chronic pain; M79.2 Neuralgia and neuritis, unspecified; Z98.890 Other specified postprocedural states; Z79.899 Other long term (current) drug therapy; Z79.891 Long term (current) use of opiate analgesic; Z91.041 Radiographic dye allergy status; Z88.2 Allergy status to sulfonamides; Z88.8 Allergy status to other drugs, medicaments and biological substances

== ENCOUNTER → 2019-08-17 | Outpatient (CLI) | payer OTHER ==
[~2019-08-17] VITALS: Ht 167.6 cm; Wt 75.3 kg
[2019-08-17 09:09] VITALS: BP 132/75
--- NOTE | 2019-08-17 09:10 | NUR ---
Pain Clinic Assessment: 1. History of Osteoarthritis: hands,knees,neck, and feet History of Rheumatoid Arthritis: NONE 2. Height: 5 ft. 6 in. 167.6 cm. Weight: 166.0 lb. oz. 75.297 kg. Patient's BMI: 27.0 3. Vital Signs: BP: 132/75 Pulse: 71 Resp: 18 Temp: 02 Sat: 98 ECG Mon: 4. Pain Intensity: 4 5. Fall Risk: Dizziness: N Needs help standing or walking: N Fallen in the last 3 months: N Fall risk comments: 6. Patient on Blood Thinner: None 7. History of Hypertension: N 8. Opioid Therapy greater than 6 weeks: Y Opiate Contract Signed: 04/09/17 9. Risk Assessment Tool Provided: low risk-3 10. Functional Assessment Tool: 11. Recreational Drug Use: Never Drug Type: Tobacco Use: Never Smoker Tobacco Type: Amount or Packs/day: How Many Years: Alcohol Use: Yes Frequency: Quant:
--- NOTE | 2019-08-18 10:40 | HPC ---
[facility] [place] [address] PAIN MANAGEMENT CONSULTATION Name: DELFINA JENKINS Room #: REG [facility]..#: [id number] Admission: 08/17/19 Attend Phys: Melinda Joe Discharge: Date of : 54 Report #: [id number] THIS REPORT FOR: cc: Frank Alvarez MD, Bruce H. MD Hocker,Melinda Linder DATE OF SERVICE: 08/17/2019 CHIEF COMPLAINT: Chronic pain syndrome with radiculopathy. HISTORY OF PRESENT ILLNESS: This is a 68-year-old female who returns to the pain clinic today reporting increased pain and side effects as a result of her recent intrathecal pump refill on 08/13/2019. The patient reports that she has been very sleepy and groggy over the weekend as well as nauseated. She feels that she is having paresthesias in her perineum as well as tingling feelings in her bilateral legs. She is rating her pain overall a 3-4 today, which she normally experiences in her low back that radiates into her left leg, but these symptoms have been new. Other symptoms have been new since her refill of her medications and intrathecal pump increased on 08/13/2019. The patient is requesting a decrease in her medications today. The patient reports that she had taken Zofran, and alprazolam over the weekend to help with some of her symptom management. She also took her last dose of 2.5 mg of methadone less than 24 hours ago. She is afebrile today, though she did complain of a sore throat on last Gunner. Her is with her today. ALLERGIES: CONTRAST DYE, SULFA, SHELLFISH, IODINE, CODEINE, REGLAN and MORPHINE. MEDICATION MANAGEMENT: Spironolactone 25 mg daily, oxycodone 10/325 p.r.n., Zofran, and alprazolam p.r.n. PQRS: 1. She has known arthritic changes in her hands, knees, back and feet. Denies any rheumatoid arthritis. 2. Height is 5 feet 6 inches, weight is 166, BMI is 27. 3. 132/75, pulse is 71, respirations 18, oxygen sat is 98. 4. Pain score is 4/10. 5. Denies dizziness, does not need help walking or standing, has not fallen in the last 3 months. 6. The patient is not on blood thinners or medicine for hypertension. 7. Opiate therapy is greater than 6 weeks; therefore, an opioid signed contract is on the chart. Risk assessment tool is low. Functional assessment is 32/70. 8. Recreational drug use, she denies. She is not a smoker and occasionally drinks alcohol. [address] [address] PAIN MANAGEMENT CONSULTATION Name: GREGORYDELFINA G Room #: REG [facility] Car#: [id number] Admission: 08/17/19 Attend Phys: Melinda Joe Discharge: Date of : 54 Report #: [id number] According to the prescription monitoring system, the patient is filling appropriately for her medications. PHYSICAL EXAMINATION: GENERAL: This is alert and orientated 68-year-old female who is looking rather sickly today in her appearance. She is slightly pale in color. She is placing her current pain score at 3/10 today. HEENT: Normocephalic, atraumatic. Extraocular eye muscles are intact. MUSCULOSKELETAL: Pain and tenderness in her lower back, radiates down her left leg. Her lower extremity strength judged to be 5/5 in all major muscle groups. ABDOMEN: Nontender. Complains of nausea, no emesis noted. IMPRESSION: 1. Chronic intractable low back pain, post-laminectomy. 2. Lumbar radiculopathy at the L5 nerve root. 3. Management of intrathecal infusion pump. 4. Chronic depression. PLAN: 1. We discussed treatment options with the patient today. Dr. Bud Rangel was present for most of this discussion. At her last visit where her pump was refilled with fentanyl 225 mcg/mL and clonidine 75 mcg/mL concentration. Her rate of infusion was increased 10% as well as her flex programming was removed and she was given a patient activated management system that Dr. Rangel allowed 6 intervals per 24 hours. The patient states she had been using this 2-3 times a day. She states she has not used it in the last 24 hours. She is unsure what caused this reaction, but we will decrease her intrathecal pump today by 12%, placing her back to similar dosing as she was previously on to see if this will help with her nausea, sleepiness and groggy feelings. The patient may be very sensitive to these changes in her intrathecal medications. 2. Settings for her intrathecal pump are now fentanyl 174 mcg per day and clonidine 58.3 mcg per day. Her PTM is set for 20 mcg to be given up to 5 mcg for 6 in 24 hours. This is a decrease as well in her infusion of her PTM. 3. The patient instructed to call if she continues to have symptoms. She is to remain off her methadone. was with her today and he will monitor the patient as well and call if symptoms continue. Appointment made for intrathecal pump refill in September. The patient discharged to home with . Again, care given today under the collaboration with Dr. Bud Rangel. <ELECTRONICALLY SIGNED> By: Melinda Joe 08/18/19 [id number] Melinda Joe /nt
== END | disposition home or self-care (01) ==
LOC: PAIN 08:30
DX: Z45.1 Encounter for adjustment and management of infusion pump (principal); G89.4 Chronic pain syndrome; M96.1 Postlaminectomy syndrome, not elsewhere classified; M54.16 Radiculopathy, lumbar region; F32.89 Other specified depressive episodes; Z98.890 Other specified postprocedural states; Z91.041 Radiographic dye allergy status; Z88.2 Allergy status to sulfonamides; Z88.8 Allergy status to other drugs, medicaments and biological substances; Z79.891 Long term (current) use of opiate analgesic; Z88.6 Allergy status to analgesic agent

== ENCOUNTER → 2019-09-24 | Outpatient (CLI) | payer OTHER | END | disposition home or self-care (01) | LOC: PAIN 06:58 | DX: Z45.1 Encounter for adjustment and management of infusion pump (principal); M54.16 Radiculopathy, lumbar region; G89.29 Other chronic pain; F32.89 Other specified depressive episodes; Z79.891 Long term (current) use of opiate analgesic; Z98.890 Other specified postprocedural states; Z91.041 Radiographic dye allergy status; Z88.6 Allergy status to analgesic agent; Z88.8 Allergy status to other drugs, medicaments and biological substances; Z88.2 Allergy status to sulfonamides ==

== ENCOUNTER → 2019-10-15 | Outpatient (CLI) | payer OTHER ==
[~2019-10-15] MED LIST changes: +NARCAN4 MG NARES; +OXYCONTIN15 MG PO
--- NOTE | 2019-10-16 07:53 | HPC ---
[facility] [address] [place] [address] PAIN MANAGEMENT CONSULTATION Name: DELFINA JENKINS Room #: REG [facility]..#: [id number] Admission: 10/15/19 Attend Phys: Melinda Joe Discharge: Date of : 54 Report #: [id number] THIS REPORT FOR: cc: Frank Alvarez MD, Bruce H. MD Hocker,Melinda WELLS ~ CC: Bud Rangel MD DATE OF SERVICE: 10/15/2019 This is a telemedicine appointment due to the COVID virus. The patient is at home today. This is an audiovisual appointment from 14:45 to 15:10. CHIEF COMPLAINT: Chronic intractable pain, lumbar radiculopathy. HISTORY OF PRESENT ILLNESS: This is a 69-year-old female who I am visiting with via audiovisual today for a telemedicine appointment. The patient states that she had "horrible" pains last week. She states that she had been trying to wean off her methadone due to increased swelling in her legs and continued to have increased pain when she was tapering off her methadone. She had continued her oxycodone 10/325 up to 4 times a day during that time, but was finding it not beneficial. She reports that on Saturday of this week, she found some leftover OxyContin 10 mg tablets at home and has since been taking 2 tablets a day to replace the methadone. She believes that she is at least 25% better since she has started the OxyContin on Saturday. Today, she is requesting a new prescription for that medication or possibly an opioid rotation to Nucynta, which Dr. Bud Rangel had discussed with her. The patient does report that her pain score has been decreased from a 6-7 in the morning and 8-10 at night to now a steady 4-5/10 throughout the day and a 6 in the evenings with this new regimen of OxyContin and oxycodone. She also has been able to decrease the PTM boluses that she has been giving herself to no more than 4 a day. The patient reports that her edema in her lower extremities is slowly decreasing since she has stopped her methadone. She continues to take spironolactone on a daily basis, but hopeful that she will be able to stop that medication within the week if her swelling continues to decrease. She is requesting refills of medications today. ALLERGIES: CONTRAST DYE, SULFA, SHELLFISH, IODINE, CODEINE, REGLAN, AND MORPHINE. CURRENT LIST OF MEDICATIONS: Spironolactone 25 mg daily, oxycodone 10/325 q.i.d., OxyContin 10 b.i.d., Mirapex, Rizatriptan, Zyrtec, Xanax, Benadryl, Celebrex, Zegerid and Lexapro. PQRS: 1. She has osteoarthritis in her hands, knees, neck and feet. Denies any [address] [address] PAIN MANAGEMENT CONSULTATION Name: DELFINA JENKINS Room #: REG [facility] Car#: [id number] Admission: 10/15/19 Attend Phys: Melinda Joe Discharge: Date of : 54 Report #: [id number] rheumatoid arthritis. We did not weigh her or do vital signs since this is a telemedicine appointment. Pain score again 4-7 depending on the time of day. 2. Denies dizziness. She uses a walking stick outside due to some weakness in her lower extremities. She has not fallen in the last 3 months. 3. The patient is not on any blood thinners or medicine for hypertension. 4. Opioid therapy is greater than 6 weeks; therefore, an opioid signed contract is on the chart. Her risk assessment tool is low. Functional assessment is 32/70. 5. Recreational drug use, she denies. She is not a smoker and occasionally drinks alcohol. PHYSICAL EXAMINATION: Limited due to her being at home at appointment. GENERAL: She is alert and orientated, able to answer all my questions. She is quite put together today, wearing makeup and dressed appropriately. HEENT: Normocephalic, atraumatic. Extraocular eye muscles are intact. MUSCULOSKELETAL: The patient is able to move about the room. She is able to stand up without assistance of the chair. She has edema in her lower extremities that she did show me. She also reports slight weakness in her lower extremities today. IMPRESSION: 1. Chronic intractable back with severe in nature with radiculopathy, status post laminectomy. 2. Management of intrathecal infusion pump with PTM boluses. 3. Management of high risk medications under terms of written opioid agreement. 4. Chronic depression. PLAN: 1. We discussed treatment options and I discussed this case with Dr. Bud Rangel throughout this call as well. The patient has recently started her OxyContin at home and finds this has been beneficial in reducing some of her overall pain. It was decided to refill a prescription of OxyContin 15 mg b.i.d. as well as oxycodone 10/325, #120 with a goal of slowly decreasing her breakthrough pain medicine to hopefully no more than 2 a day. The patient may continue her PTM bolus as needed for her intrathecal pump. 2. We did discuss other opioid medications of Nucynta as well as Xtampza at this present time. We will put those on hold for a possible opioid rotation in the future if the OxyContin is not beneficial for a prolonged period of time. 3. The patient has been complaining of slight leg weakness and using walking sticks when she is outside. We may discuss decreasing her bupivacaine or clonidine, though both are relatively low dose and her intrathecal pump at her next refill, which will be scheduled in early November. 4. Again, this case was discussed with Dr. Bud [place] [address] PAIN MANAGEMENT CONSULTATION Name: DELFINA JENKINS [id number] Admission: 10/15/19 Attend Phys: Melinda Joe Discharge: Date of : 54 Report #: [id number] for this telemedicine appointment. The patient to notify us by phone if she continues to have problems. <ELECTRONICALLY SIGNED> By: Melinda Joe 10/16/19 [id number] Melinda Joe /nathan
== END ==
LOC: TELEPC 13:54
DX: M54.16 Radiculopathy, lumbar region (principal); G89.29 Other chronic pain; M96.1 Postlaminectomy syndrome, not elsewhere classified; F32.9 Major depressive disorder, single episode, unspecified; F11.20 Opioid dependence, uncomplicated; Z98.890 Other specified postprocedural states

== ENCOUNTER → 2019-11-05 | Outpatient (CLI) | payer OTHER ==
[~2019-11-05] VITALS: Ht 167.6 cm; Wt 77.5 kg
[~2019-11-05] MED LIST changes: +KAPVAY0.1 MG PO; +OXYCODONE HCL E15 MG PO
--- NOTE | ~2019-11-05 | HPC ---
[facility] [address] [address] PAIN MANAGEMENT CONSULTATION Name: DELFINA JENKINS Room #: REG [facility].#: [id number] Admission: 11/05/19 Attend Phys: Bud Rangel MD Discharge: Date of : 54 Report #: [id number] THIS REPORT FOR: cc: Frank Alvarez MD,Bud Padgett MD, MD ~ CC: FRANK Rangel DATE OF SERVICE: 11/05/2019 HISTORY OF PRESENT ILLNESS: The patient returns to the pain clinic today and followup. We are taking all co-analgesics out of her intrathecal pump and leaving her on fentanyl alone. This will allow her to use of PTM and we will see how she does on monotherapy fentanyl as an opioid. We were limited by edema, which I believe was caused by morphine/hydromorphone idiosyncratic reaction that we see about 15% to 20% of the time. It has been difficult to manage with diuretics. She has been limited therefore in titration of her intrathecal pump by combinations of medicines. I also placed clonidine and bupivacaine in the pump for neuropathic pain to supplement the fentanyl. This caused weakness and she had difficulty going up and down the steps. After much consideration and discussion with partners, follow nurses and others, I have decided to go with monotherapy, which will allow us to adjust her medication intrathecally without restrictions from others. I have discussed this with her. She presents to the pain clinic today again with a new group of issues. Both feet are now numb. She has numbness and somewhat stocking distribution. She also has bilateral lower extremity 2+ to 3+ edema to the knees. She is having some perineal numbness as well. Weakness has been described particularly going up and down steps. Her worst pain remains her severe left L5-S1 radicular pain. For the first time she has used the word complex regional pain syndrome. 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 Regardless of how we define it, we have treated it as we would that condition all a long way. We discussed Dr. Bakari Mukherjee chronic pain management program. It was my recollection that we did discuss the psychosocial and chronic program on multiple previous visits, but have not referred her onto his comprehensive program, I believe that we should do so now. I explained some of his program to her and provided with literature [address] [address] PAIN MANAGEMENT CONSULTATION Name: DELFINA JENKINS Room #: REG CLI Josep#: [id number] Admission: 11/05/19 Attend Phys: Bud Rangel MD Discharge: Date of : 54 Report #: [id number] discussing the pain management program in his comprehensive approach. Dr. Mukherjee has also been helpful in helping patients who have a desire to taper and rely less on medications. There were some questions about reinitiating trials of medicine, she has already had with side effects such as gabapentin and Lyrica. I did not pursue further therapies there today. CURRENT MEDICINES: Include spironolactone 25 mg 1-2 tablets daily, she is on 70 mg of oxycodone a day, current OxyContin dose is 15 mg b.i.d., oxycodone 10/325 four tablets daily. This 70 mg of oxycodone is equal to an MME of 105. She is on Mirapex, Rizatriptan, Zyrtec, Xanax, Benadryl, Celebrex, Zegerid, and Lexapro. PHYSICAL EXAMINATION: GENERAL: She is pleasant female wearing a mask. No signs of oversedation. She appears mildly depressed. ABDOMEN: Examination of the abdomen reveals pump in the right lower quadrant and nontender. BACK: Nontender. She has pain in the left leg consistent with a radiculopathy radiates into the left foot. She has bilateral 2+ to 3+ pitting edema. IMPRESSION: 1. Chronic intractable pain syndrome. 2. Lumbar radiculopathy, left L5-S1 distribution, status post laminectomy. This is now being described by her as complex regional pain syndrome type 2 and she would meet criteria. 3. Management of high risk oral medications. 4. Management of intrathecal infusion pump. PROCEDURE: Refill reprogramming and change of intrathecal pump medication. DESCRIPTION OF PROCEDURE: After informed consent, skin was prepped with ChloraPrep. A 22-gauge non-coring needle advanced in pump. Old medication removed and discarded per protocol. Pump was then refilled with fentanyl 800 mcg/mL. Reprogramming session was performed. Her new dose of monotherapy will be fentanyl 250 mcg per day basal rate, this is 11.1% increase of her basal rate of the fentanyl. I have allowed for more frequent PTM uses of 20 mcg every 2 hours for a total of 8 per day. This will allow her to use a maximum of 407 mcg of fentanyl per day. I have given her a prescription for clonidine 0.1 mg tablets b.i.d. p.r.n. in case there is some clonidine withdrawal from her intrathecal medication. She is currently receiving roughly 100 mcg of clonidine per day. She will check her own blood pressures at home and use the clonidine in response to hypertension. [address] [address] PAIN MANAGEMENT CONSULTATION Name: DELFINA JENKINS Room #: REG [facility] Car#: [id number] Admission: 11/05/19 Attend Phys: Bud Rangel MD Discharge: Date of : 54 Report #: [id number] Followup visit planned in 2 months. By: [id number] Bud Rangel MD /nt
[2019-11-05 11:16] VITALS: BP 125/67
--- NOTE | 2019-11-05 11:39 | NUR ---
Pain Clinic Assessment: 1. History of Osteoarthritis: hands,knees,neck, and feet History of Rheumatoid Arthritis: NONE 2. Height: 5 ft. 6 in. 167.6 cm. Weight: 170.8 lb. oz. 77.474 kg. Patient's BMI: 27.6 3. Vital Signs: BP: 125/67 Pulse: 79 Resp: 16 Temp: 02 Sat: 100 ECG Mon: 4. Pain Intensity: 5 5. Fall Risk: Dizziness: N Needs help standing or walking: N Fallen in the last 3 months: N Fall risk comments: 6. Patient on Blood Thinner: None 7. History of Hypertension: N 8. Opioid Therapy greater than 6 weeks: Y Opiate Contract Signed: 04/09/17 9. Risk Assessment Tool Provided: low risk-3 10. Functional Assessment Tool: 11. Recreational Drug Use: Never Drug Type: Tobacco Use: Never Smoker Tobacco Type: Amount or Packs/day: How Many Years: Alcohol Use: Yes Frequency: Daily Quant: 2 glasses/wine
== END | disposition home or self-care (01) ==
LOC: PAIN 06:52
DX: Z45.1 Encounter for adjustment and management of infusion pump (principal); G89.29 Other chronic pain; M54.16 Radiculopathy, lumbar region; Z79.891 Long term (current) use of opiate analgesic; Z98.890 Other specified postprocedural states; Z79.899 Other long term (current) drug therapy; Z88.2 Allergy status to sulfonamides; Z91.040 Latex allergy status; Z88.8 Allergy status to other drugs, medicaments and biological substances

== ENCOUNTER → 2020-01-18 | Outpatient (CLI) | payer OTHER ==
[~2020-01-18] VITALS: Ht 167.6 cm; Wt 77.9 kg
--- NOTE | ~2020-01-18 | HPC ---
[facility] [place] [address] [address] [place] [address] PAIN MANAGEMENT CONSULTATION Name: DELFINA RAYGOZA Room #: REG [facility] Rose.#: [id number] Admission: 01/18/20 Attend Phys: Bud Rangel MD Discharge: Date of : 54 Report #: [id number] THIS REPORT FOR: cc: Frank Alvarez MD, Bruce H. MD Morgan, Richard L. MD ~ CC: FRANK Rangel DATE OF SERVICE: 01/18/2020 Followup visit for chronic pain. The patient returns today with her , Dr. Paul Raygoza. She seems to be doing better. Her pump is infusing monotherapy with fentanyl. Her edema is less. She is having a few nights where she is sleeping straight through. She has been remaining very active and I think that is helping the psychosocial component of her chronic pain. She has been utilizing her pain medications cautiously and carefully to provide her additional pain relief. She is on a combination of both intrathecal and oral medications. She is on oxycodone 15 mg b.i.d. for a long-acting opioid and oxycodone 10/325 one tablet 4 times a day. The combination of this 90 morphine milligram equivalent oral dosing plus her intrathecal fentanyl, I think this finally help us turned the corner a bit. For the first time in many visits over the last several years she has come in without a significant increase in pain. She does have a new pain generator that she would like me to address today. It is actually a chronic recurring pain generator with trochanteric bursitis. Localized tenderness over the trochanter and pain after activities points that diagnosis. She has responded very nicely to triamcinolone injections in the past. PQRS review today is completed. She has osteoarthritis of the hands, knees, neck, feet, shoulders, hips. Her BMI is 27.7, blood pressure 104/67, heart rate 74, respirations 16, O2 sat 98 on room air. Pain intensity is low or it is a 3. She has not fallen since I last saw her. She is on no blood thinners and is not treated for hypertension. She is on an opioid agreement signed as far back as 2016 and her risk assessment is 3 giving her load, but not in significant risk. We will watch over her carefully given her MME of 90. Functional assessment tool is 50. She denies use of tobacco, drinks alcohol in a social setting carefully timing it to avoid taking her opioids at the same time. She has seen Dr. Panda, who felt that she would benefit from a trochanteric bursa injection today. He performed a CT scan and I have reviewed those films. There does not appear to be mechanical and fixable injury. We will continue to [address] [address] PAIN MANAGEMENT CONSULTATION Name: GREGORYDELFINA G Room #: REG CL Josep#: [id number] Admission: 01/18/20 Attend Phys: Bud Rangel MD Discharge: Date of : 54 Report #: [id number] try and manage her effectively with intrathecal pump and oral medications with an occasional injection if necessary. PROCEDURE: Refill and reprogramming. Skin was prepped with ChloraPrep. Skin was anesthetized and a 22-gauge non-coring needle advanced in pump. Old medication removed and discarded. Pump was then refilled with fentanyl 40 mL. Reprogramming session performed. She has about 3 months' worth of medicine in her pump. I renewed her oral medications for her as well as electronically. She is on OxyContin 15 mg b.i.d., oxycodone 10/325 up to 4 times daily. On a good day, she may use it too. Her maximum MME therefore is 70 of oxycodone, which equates to 105 morphine milligram equivalency. PROCEDURE: Skin was prepped with ChloraPrep. A 22-gauge non-coring needle advanced in pump. Old medication removed and discarded per protocol. Pump was refilled with 40 mL and a reprogramming session was performed, increasing her basal rate by 10%. Her primary daily dosing will be 432 mcg that would be her maximum. She uses all aid of her PTM options. Her basal rate is 275 mcg per day. This is a 10% increase. PHYSICAL EXAMINATION: She has exquisite tenderness over the left greater trochanter. Pain with hip flexion and extension. PROCEDURE: Left trochanteric bursa injection. Skin was prepped with ChloraPrep and a 27-gauge needle was used to infiltrate the superior and lateral to the greater trochanter. A total of 7 mL of 0.5% bupivacaine mixed 50/50 with 1% lidocaine and combined with 40 mg of triamcinolone. She tolerated the injection of local anesthetic and steroid well. There were no complications. She was observed for a short time and discharged. Follow up as needed. The patient has trigger points in her neck that have responded to local anesthetic injections in the past, she has discussed scheduling an appointment in the upcoming weeks if this does not improve. By: [id number] Bud Rangel MD /nt
[2020-01-18 14:20] VITALS: BP 104/67
--- NOTE | 2020-01-18 14:36 | NUR ---
Pain Clinic Assessment: 1. History of Osteoarthritis: hands,knees,neck, and feet History of Rheumatoid Arthritis: NONE 2. Height: 5 ft. 6 in. 167.6 cm. Weight: 171.8 lb. oz. 77.928 kg. Patient's BMI: 27.7 3. Vital Signs: BP: 104/67 Pulse: 74 Resp: 16 Temp: 02 Sat: 98 ECG Mon: 4. Pain Intensity: 3 5. Fall Risk: Dizziness: N Needs help standing or walking: N Fallen in the last 3 months: N Fall risk comments: 6. Patient on Blood Thinner: None 7. History of Hypertension: N 8. Opioid Therapy greater than 6 weeks: Y Opiate Contract Signed: 04/09/17 9. Risk Assessment Tool Provided: low risk-3 10. Functional Assessment Tool: 11. Recreational Drug Use: Never Drug Type: Tobacco Use: Never Smoker Tobacco Type: Amount or Packs/day: How Many Years: Alcohol Use: Yes Frequency: Quant:
== END | disposition home or self-care (01) ==
LOC: PAIN 06:53
PROVIDERS: ATTEND Anesthesiology Pain Medicine
DX: Z45.1 Encounter for adjustment and management of infusion pump (principal); M70.62 Trochanteric bursitis, left hip; G89.29 Other chronic pain; Z79.891 Long term (current) use of opiate analgesic; Z98.890 Other specified postprocedural states; Z88.2 Allergy status to sulfonamides; Z91.041 Radiographic dye allergy status; Z79.899 Other long term (current) drug therapy

== ENCOUNTER → 2020-04-07 | Outpatient (CLI) | payer OTHER ==
[~2020-04-07] VITALS: Ht 167.6 cm; Wt 76.3 kg
[~2020-04-07] MED LIST changes: +ENDOCET 10-3251 EACH PO
--- NOTE | ~2020-04-07 | HPC ---
[facility] [address] [place] [address] PAIN MANAGEMENT CONSULTATION Name: GREGORYDELFINA G Room #: REG [facility] Chrissie.#: [id number] Admission: 04/07/20 Attend Phys: Bud Rangel MD Discharge: Date of : 54 Report #: [id number] CC: Frank Rangel DATE OF SERVICE: 04/07/2020 Followup visit for chronic intractable pain syndrome. Complex oral and intrathecal medication management. Opioid agreement. The patient is here today with her , Dr. Paul Raygoza to undergo refill of her intrathecal infusion pump and also to renew her oral medicines, which are working in conjunction with the intrathecal therapies. She continues to become more well adjusted to her chronic pain. We understand that she still suffers daily and she makes that clear scoring her pain intensity as a 6/10. Nonetheless, she has been fishing in [place], traveled, is doing some gardening and other hobbies and also focusing on many of the positive aspects of her life. She has been doing some fall housekeeping and notices that her pain score is slightly elevated. At one point, I was hearing from her frequently, which we are making adjustments in trials through her intrathecal pump. We have now established that monotherapy with fentanyl seems to be most effective and given its excellent lipophilic properties and its excellent option for the use of a PTM device. She is opioid dependent, remains on a relatively high dose of oxycodone. We have accepted this as the dose necessary to keep her comfortable and functioning. Her oxycodone dose is 60-70 mg per day. She uses OxyContin extended release 15 mg morning and evening and oxycodone 10/325 up to 4 times a day in breakthrough. With this, she says that she is relatively stable. She continues to try and use the most lowest effective dose. Her prescription drug monitoring program from 04/06/2020 was reviewed. There are no unexpected prescriptions or entries. She is on a benzodiazepine and a low-dose alprazolam for sleep prescribed by Dr. Frank Alvarez. We have discussed this as an important medication to monitor and she has shown that she is able to take it effectively without complications or side effects. She will safeguard these medications. Her opioid risk tool score is 3. PHYSICAL EXAMINATION: She is pleasant, alert and oriented, well dressed. Blood pressure 115/72, heart rate 74, respirations 16. She shows no signs of depression, anxiety or overmedication. Her outlook seems positive and her affect good. She can independently move from sitting to standing position, her gait is mildly antalgic. Her pump is in the lower abdomen and nontender. PQRS: 1. Reviewed and positive for some osteoarthritis involving hands, knees, neck, and feet. Her BMI is stable at 27.2. 2. Vital signs are as noted. 3. She has not fallen, is on no blood thinners and denies a history of hypertension. 4. Opioid risk assessment tool and agreement are reviewed, last signed in 03/2017. 5. She denies use of tobacco, drinks alcohol in a social setting with her . IMPRESSION: 1. Chronic intractable neuropathic pain, post-laminectomy. 2. Management of intrathecal pump with refill and reprogramming session today. 3. Trochanteric bursitis, improved. 4. Management of oral medications under terms of written opioid agreement. PROCEDURE: After informed consent, the skin was prepped with ChloraPrep. A 22-gauge non-coring needle advanced in pump. Old medication removed and discarded per protocol. Pump was refilled with fentanyl 800 mcg/mL monotherapy 40 mL and a reprogramming session was performed without change. Her daily dose maximum will be around 230 mcg of intrathecal fentanyl. I wrote prescriptions for 2 months of her oral medicines as well, oxycodone and OxyContin. We will try to provide her medications for her when ____ to [place] and when they depart in early June. Followup visit scheduled in early June. We plan to double the concentration of fentanyl in her intrathecal pump, which should give her roughly 4 months between refills. By: [id number] Bud Rangel MD /nt
[2020-04-07 10:17] VITALS: BP 118/72
--- NOTE | 2020-04-07 10:40 | NUR ---
Pain Clinic Assessment: 1. History of Osteoarthritis: hands,knees,neck, and feet History of Rheumatoid Arthritis: NONE 2. Height: 5 ft. 6 in. 167.6 cm. Weight: 168.2 lb. oz. 76.295 kg. Patient's BMI: 27.2 3. Vital Signs: BP: 118/72 Pulse: 74 Resp: 16 Temp: 02 Sat: 99 ECG Mon: 4. Pain Intensity: 6 5. Fall Risk: Dizziness: N Needs help standing or walking: N Fallen in the last 3 months: N Fall risk comments: 6. Patient on Blood Thinner: None 7. History of Hypertension: N 8. Opioid Therapy greater than 6 weeks: Y Opiate Contract Signed: 04/09/17 9. Risk Assessment Tool Provided: low risk-3 10. Functional Assessment Tool: 11. Recreational Drug Use: Never Drug Type: Tobacco Use: Never Smoker Tobacco Type: Amount or Packs/day: How Many Years: Alcohol Use: Yes Frequency: Quant:
== END | disposition home or self-care (01) ==
LOC: PAIN 01-28 13:07
PROVIDERS: ATTEND Anesthesiology Pain Medicine
DX: M96.1 Postlaminectomy syndrome, not elsewhere classified (principal); G89.29 Other chronic pain; M70.60 Trochanteric bursitis, unspecified hip; Z79.899 Other long term (current) drug therapy; Z72.89 Other problems related to lifestyle

== ENCOUNTER → 2020-06-20 | Outpatient (CLI) | payer OTHER ==
[~2020-06-20] VITALS: Ht 167.6 cm; Wt 76.8 kg
[~2020-06-20] MED LIST changes: +OXYCONTIN40 MG PO
[2020-06-20 13:45] VITALS: BP 117/79
--- NOTE | 2020-06-20 13:46 | NUR ---
Pain Clinic Assessment: 1. History of Osteoarthritis: hands,knees,neck, and feet History of Rheumatoid Arthritis: NONE 2. Height: 5 ft. 6 in. 167.6 cm. Weight: 169.4 lb. oz. 76.839 kg. Patient's BMI: 27.4 3. Vital Signs: BP: 117/79 Pulse: 77 Resp: 16 Temp: 02 Sat: 100 ECG Mon: 4. Pain Intensity: 6-7 5. Fall Risk: Dizziness: N Needs help standing or walking: N Fallen in the last 3 months: N Fall risk comments: 6. Patient on Blood Thinner: None 7. History of Hypertension: N 8. Opioid Therapy greater than 6 weeks: Y Opiate Contract Signed: 04/09/17 9. Risk Assessment Tool Provided: low risk-3 10. Functional Assessment Tool: 11. Recreational Drug Use: Never Drug Type: Tobacco Use: Never Smoker Tobacco Type: Amount or Packs/day: How Many Years: Alcohol Use: Yes Frequency: Daily Quant: 1
== END | disposition home or self-care (01) ==
LOC: PAIN 07:01
PROVIDERS: ATTEND Anesthesiology Pain Medicine
DX: Z45.1 Encounter for adjustment and management of infusion pump (principal); M96.1 Postlaminectomy syndrome, not elsewhere classified; G89.4 Chronic pain syndrome; F32.9 Major depressive disorder, single episode, unspecified; Z98.890 Other specified postprocedural states; Z79.891 Long term (current) use of opiate analgesic; Z79.899 Other long term (current) drug therapy; Z88.2 Allergy status to sulfonamides; Z91.041 Radiographic dye allergy status; Z88.8 Allergy status to other drugs, medicaments and biological substances

== ENCOUNTER → 2020-08-15 | Outpatient (CLI) | payer OTHER ==
[~2020-08-15] VITALS: Ht 167.6 cm; Wt 76.0 kg
[2020-08-15 11:08] VITALS: BP 110/80
--- NOTE | 2020-08-15 11:25 | NUR ---
Pain Clinic Assessment: 1. History of Osteoarthritis: hands,knees,neck, and feet History of Rheumatoid Arthritis: NONE 2. Height: 5 ft. 6 in. 167.6 cm. Weight: 167.6 lb. oz. 76.023 kg. Patient's BMI: 27.1 3. Vital Signs: BP: 110/80 Pulse: 73 Resp: 16 Temp: 02 Sat: 98 ECG Mon: 4. Pain Intensity: 4 5. Fall Risk: Dizziness: N Needs help standing or walking: N Fallen in the last 3 months: N Fall risk comments: 6. Patient on Blood Thinner: None 7. History of Hypertension: N 8. Opioid Therapy greater than 6 weeks: Y Opiate Contract Signed: 04/09/17 9. Risk Assessment Tool Provided: low risk-2 10. Functional Assessment Tool: 11. Recreational Drug Use: Never Drug Type: Tobacco Use: Never Smoker Tobacco Type: Amount or Packs/day: How Many Years: Alcohol Use: Yes Frequency: Daily Quant: 1 wine
--- NOTE | 2020-08-16 08:26 | HPC ---
[facility] [place] [address] PAIN MANAGEMENT CONSULTATION Name: DELFINA JENKINS Room #: REG [facility] Chrissie.#: [id number] Admission: 08/15/20 Attend Phys: Melinda Joe Discharge: Date of : 54 Report #: [id number] THIS REPORT FOR: cc: Frank Alvarez MD, Bruce H. MD Hocker,Melinda WELLS ~ DATE OF SERVICE: 08/15/2020 CHIEF COMPLAINT: Chronic intractable low back pain with radiculopathy. HISTORY OF PRESENT ILLNESS: The patient returns today for medication refills. She is a 69-year-old female that has ongoing low back pain as well as left hip pain that radiates into her left leg to her foot. She does experience occasional right foot pain as well. Today, she is reporting her pain score 4/10, describing as a burning tingly sensation. She reports she is finally feeling slightly better. She has started doing [employer] and speaking with a counselor every day. She believes this is beneficial for her mental health as well she has started walking on a daily basis at least 30 minutes once to twice a day. She feels the exercise has been good for her. She has not lost weight, but she does overall feel better and is quite upbeat in her conversation with me today. She has been wintering in [place]. After our visit today, she will return there for another month and a half before returning the end of September and have her intrathecal pump refilled by Dr. Rangel. Today, she is needing refills of her OxyContin and oxycodone medications. ALLERGIES: CONTRAST DYE, SULFA, SHELLFISH, IODINE, CODEINE, REGLAN, AND MORPHINE. CURRENT LIST OF MEDICATIONS: Oxycodone 10/325 p.r.n., OxyContin 10 mg b.i.d., Mirapex, Rizatriptan, Zofran p.r.n., Flonase, Zyrtec, Xanax, Benadryl p.r.n. PQRS: 1. She has osteoarthritic changes in her neck, feet, hands and spine. Denies any rheumatoid arthritis. 2. Height is 5 feet 6 inches, weight is 167, BMI is 27. 3. Vital signs, blood pressure 110/80, pulse is 73, respirations 16, and oxygen sat is 98%. 4. Pain score is 4/10. 5. Denies dizziness, does not need assistance with ambulation. Has not fallen in the last 3 months. 6. The patient is not on any blood thinners or medicine for hypertension. 7. Opioid therapy is greater than 6 weeks; therefore, an opioid signed contract is on the chart. Risk assessment is low. Functional assessment is 32/70. 8. Recreational drug use, she denies. She is not a smoker [place] [address] PAIN MANAGEMENT CONSULTATION Name: DELFINA JENKINS Room #: KEVIN Car#: [id number] Admission: 08/15/20 Attend Phys: Melinda Joe Discharge: Date of : 54 Report #: [id number] According to the prescription monitoring system, she is due to fill her medications today. At her next opioid visit, we will check a UDS. We do not have one on the chart. She has been out of some of her medications for several days. So I do not feel as warranted to do this today for an accurate test. PHYSICAL EXAMINATION: GENERAL: This is alert and orientated, slightly upbeat patient today. She is well-developed, well-nourished, rating her pain score today at 4/10. HEENT: Normocephalic, atraumatic. Extraocular eye muscles are intact. She is wearing a mask. NECK: Without JVD or adenopathy. BACK: Discomfort in her lumbosacral region that does radiate into her left leg to her foot consistent with radiculopathy. No edema present today. ABDOMEN EXAMINATION: Abdomen reveals a pump in her right lower quadrant. IMPRESSION: 1. Chronic intractable pain syndrome. 2. Lumbar radiculopathy, the left L5-S1 dermatomal distribution. 3. Status post laminectomy. 4. Management of high risk oral medications. 5. Intrathecal infusion pump. PLAN: 1. We discussed treatment options with the patient today. The patient finds her medication beneficial. She will be back in a month and a half staying for the rest of the summer here in [place]. She does winter in [facility], having difficulties filling her prescriptions down there. So therefore, she has returned to [place] for this appointment. Today, we will send electronically OxyContin 15 mg, #90 and oxycodone 10/325, #90. This medication should last her until she returns mid-September. 2. At her next appointment, we will decrease her back to her OxyContin 15 mg b.i.d. and continue her on her breakthrough pain medication. She believes that she may be able to decrease her short-acting some if she continues to walk. She is participating in [employer] online and is feeling much better mentally and physically by using their counselors and being more physically active. 3. The patient states her PTM for her intrathecal pump shows the date of 10/11/2020. She will see us in the clinic at the end of September for this refill. 4. The patient is seen today in collaboration with Dr. Bud Rangel. <ELECTRONICALLY SIGNED> By: Melinda Joe 08/16/20 0826 [id number] Melinda Joe /nt
== END ==
LOC: PAIN 06:54
PROVIDERS: ATTEND Clinical Nurse Specialist Adult Health
DX: M54.16 Radiculopathy, lumbar region (principal); G89.4 Chronic pain syndrome; Z79.891 Long term (current) use of opiate analgesic; Z79.899 Other long term (current) drug therapy; Z88.2 Allergy status to sulfonamides; Z88.5 Allergy status to narcotic agent; Z88.1 Allergy status to other antibiotic agents; Z88.8 Allergy status to other drugs, medicaments and biological substances

== ENCOUNTER → 2020-10-17 | Outpatient (CLI) | payer OTHER ==
[~2020-10-17] VITALS: Ht 167.6 cm; Wt 73.2 kg
[~2020-10-17] MED LIST changes: +GRALISE300 MG PO
[2020-10-17 13:38] VITALS: BP 116/81
--- NOTE | 2020-10-17 13:54 | NUR ---
Pain Clinic Assessment: 1. History of Osteoarthritis: hands,knees,neck, and feet History of Rheumatoid Arthritis: NONE 2. Height: 5 ft. 6 in. 167.6 cm. Weight: 161.4 lb. oz. 73.211 kg. Patient's BMI: 26.1 3. Vital Signs: BP: 116/81 Pulse: 72 Resp: 14 Temp: 02 Sat: 96 ECG Mon: 4. Pain Intensity: 5 5. Fall Risk: Dizziness: N Needs help standing or walking: N Fallen in the last 3 months: N Fall risk comments: 6. Patient on Blood Thinner: None 7. History of Hypertension: N 8. Opioid Therapy greater than 6 weeks: Y Opiate Contract Signed: 04/09/17 9. Risk Assessment Tool Provided: low risk-2 10. Functional Assessment Tool: 11. Recreational Drug Use: Never Drug Type: Tobacco Use: Never Smoker Tobacco Type: Amount or Packs/day: How Many Years: Alcohol Use: Yes Frequency: Daily Quant: 1
== END | disposition home or self-care (01) ==
LOC: PAIN 12:03
PROVIDERS: ATTEND Anesthesiology Pain Medicine
DX: Z45.1 Encounter for adjustment and management of infusion pump (principal); G89.29 Other chronic pain; Z98.890 Other specified postprocedural states; Z79.899 Other long term (current) drug therapy; Z88.8 Allergy status to other drugs, medicaments and biological substances; Z91.041 Radiographic dye allergy status

== ENCOUNTER → 2020-11-24 | Outpatient (CLI) | payer OTHER ==
[~2020-11-24] VITALS: Ht 167.6 cm; Wt 72.3 kg
[~2020-11-24] MED LIST changes: +NORTRIPTYLINE H10 M2 PO
[2020-11-24 12:57] VITALS: BP 124/77
--- NOTE | 2020-11-24 13:06 | NUR ---
Pain Clinic Assessment: 1. History of Osteoarthritis: hands,knees,neck, and feet History of Rheumatoid Arthritis: NONE 2. Height: 5 ft. 6 in. 167.6 cm. Weight: 159.4 lb. oz. 72.303 kg. Patient's BMI: 25.7 3. Vital Signs: BP: 124/77 Pulse: 80 Resp: 16 Temp: 02 Sat: 99 ECG Mon: 4. Pain Intensity: 2-3 5. Fall Risk: Dizziness: Y Needs help standing or walking: N Fallen in the last 3 months: N Fall risk comments: 6. Patient on Blood Thinner: None 7. History of Hypertension: N 8. Opioid Therapy greater than 6 weeks: Y Opiate Contract Signed: 04/09/17 9. Risk Assessment Tool Provided: low risk-2 10. Functional Assessment Tool: 11. Recreational Drug Use: Never Drug Type: Tobacco Use: Never Smoker Tobacco Type: Amount or Packs/day: How Many Years: Alcohol Use: No Frequency: Quant:
== END ==
LOC: PAIN 10:19
PROVIDERS: ATTEND Clinical Nurse Specialist Adult Health
DX: G89.4 Chronic pain syndrome (principal); M54.16 Radiculopathy, lumbar region; Z79.891 Long term (current) use of opiate analgesic; Z79.899 Other long term (current) drug therapy

== ENCOUNTER → 2021-01-23 | Outpatient (CLI) | payer OTHER ==
[~2021-01-23] VITALS: Ht 167.6 cm; Wt 72.5 kg
[~2021-01-23] MED LIST changes: +LEVO-T25 MCG PO
[2021-01-23 10:13] VITALS: BP 119/83
--- NOTE | 2021-01-23 10:33 | NUR ---
Pain Clinic Assessment: 1. History of Osteoarthritis: hands,knees,neck, and feet History of Rheumatoid Arthritis: NONE 2. Height: 5 ft. 6 in. 167.6 cm. Weight: 159.8 lb. oz. 72.485 kg. Patient's BMI: 25.8 3. Vital Signs: BP: 119/83 Pulse: 74 Resp: 16 Temp: 02 Sat: 98 ECG Mon: 4. Pain Intensity: 4-5 5. Fall Risk: Dizziness: N Needs help standing or walking: N Fallen in the last 3 months: N Fall risk comments: 6. Patient on Blood Thinner: None 7. History of Hypertension: N 8. Opioid Therapy greater than 6 weeks: Y Opiate Contract Signed: 01/23/21 9. Risk Assessment Tool Provided: low risk-2 10. Functional Assessment Tool: 11. Recreational Drug Use: Never Drug Type: Tobacco Use: Never Smoker Tobacco Type: Amount or Packs/day: How Many Years: Alcohol Use: Yes Frequency: Daily Quant: HALF GLASS OF WINE
== END ==
LOC: PAIN 07:02
PROVIDERS: ATTEND Clinical Nurse Specialist Adult Health
DX: G89.4 Chronic pain syndrome (principal); M54.16 Radiculopathy, lumbar region; M96.1 Postlaminectomy syndrome, not elsewhere classified; F10.10 Alcohol abuse, uncomplicated; Z98.890 Other specified postprocedural states; Z88.5 Allergy status to narcotic agent; Z88.2 Allergy status to sulfonamides; Z88.8 Allergy status to other drugs, medicaments and biological substances; Z79.891 Long term (current) use of opiate analgesic; Z79.899 Other long term (current) drug therapy

== ENCOUNTER → 2021-02-16 | Outpatient (CLI) | payer OTHER ==
[~2021-02-16] VITALS: Ht 167.6 cm; Wt 73.3 kg
[2021-02-16 12:47] VITALS: BP 118/77
--- NOTE | 2021-02-16 13:00 | NUR ---
Pain Clinic Assessment: 1. History of Osteoarthritis: hands,knees,neck, and feet History of Rheumatoid Arthritis: NONE 2. Height: 5 ft. 6 in. 167.6 cm. Weight: 161.6 lb. oz. 73.301 kg. Patient's BMI: 26.1 3. Vital Signs: BP: 118/77 Pulse: 86 Resp: 16 Temp: 02 Sat: 100 ECG Mon: 4. Pain Intensity: 3 5. Fall Risk: Dizziness: N Needs help standing or walking: N Fallen in the last 3 months: N Fall risk comments: 6. Patient on Blood Thinner: None 7. History of Hypertension: N 8. Opioid Therapy greater than 6 weeks: Y Opiate Contract Signed: 01/23/21 9. Risk Assessment Tool Provided: low risk-2 10. Functional Assessment Tool: 11. Recreational Drug Use: Never Drug Type: Tobacco Use: Never Smoker Tobacco Type: Amount or Packs/day: How Many Years: Alcohol Use: Yes Frequency: Quant:
== END | disposition home or self-care (01) ==
LOC: PAIN 11:13
PROVIDERS: ATTEND Anesthesiology Pain Medicine
DX: Z45.1 Encounter for adjustment and management of infusion pump (principal); G89.4 Chronic pain syndrome; M54.16 Radiculopathy, lumbar region; M96.1 Postlaminectomy syndrome, not elsewhere classified; M19.90 Unspecified osteoarthritis, unspecified site; Z98.890 Other specified postprocedural states; Z79.899 Other long term (current) drug therapy; Z88.2 Allergy status to sulfonamides; Z88.6 Allergy status to analgesic agent; Z91.041 Radiographic dye allergy status; Z79.891 Long term (current) use of opiate analgesic

== ENCOUNTER → 2021-04-20 | Outpatient (CLI) | payer OTHER ==
[~2021-04-20] VITALS: Ht 167.6 cm; Wt 77.1 kg
[2021-04-20 12:55] VITALS: BP 137/79
--- NOTE | 2021-04-20 13:00 | NUR ---
Pain Clinic Assessment: 1. History of Osteoarthritis: hands,knees,neck, and feet History of Rheumatoid Arthritis: NONE 2. Height: 5 ft. 6 in. 167.6 cm. Weight: 170.0 lb. oz. 77.112 kg. Patient's BMI: 27.5 3. Vital Signs: BP: 137/79 Pulse: 79 Resp: 16 Temp: 02 Sat: 100 ECG Mon: 4. Pain Intensity: 4/BACK 7-8 KNEE 5. Fall Risk: Dizziness: N Needs help standing or walking: Y Fallen in the last 3 months: N Fall risk comments: 6. Patient on Blood Thinner: None 7. History of Hypertension: N 8. Opioid Therapy greater than 6 weeks: Y Opiate Contract Signed: 01/23/21 9. Risk Assessment Tool Provided: low risk-2 10. Functional Assessment Tool: 11. Recreational Drug Use: Never Drug Type: Tobacco Use: Never Smoker Tobacco Type: Amount or Packs/day: How Many Years: Alcohol Use: Yes Frequency: Quant:
== END ==
LOC: PAIN 10:54
PROVIDERS: ATTEND Clinical Nurse Specialist Adult Health
DX: G89.29 Other chronic pain (principal); M54.17 Radiculopathy, lumbosacral region; M25.561 Pain in right knee; Z88.8 Allergy status to other drugs, medicaments and biological substances; Z79.899 Other long term (current) drug therapy

== ENCOUNTER → 2021-06-15 | Outpatient (CLI) | payer OTHER ==
[~2021-06-15] VITALS: Ht 167.6 cm; Wt 76.4 kg
[~2021-06-15] MED LIST changes: +PERCOCET 10-321 EAC1 PO
[2021-06-15 10:16] VITALS: BP 138/85
--- NOTE | 2021-06-15 10:32 | NUR ---
Pain Clinic Assessment: 1. History of Osteoarthritis: hands,knees,neck, and feet History of Rheumatoid Arthritis: NONE 2. Height: 5 ft. 6 in. 167.6 cm. Weight: 168.4 lb. oz. 76.386 kg. Patient's BMI: 27.2 3. Vital Signs: BP: 138/85 Pulse: 80 Resp: 14 Temp: 02 Sat: 97 ECG Mon: 4. Pain Intensity: 4/BACK 7-8 KNEE 5. Fall Risk: Dizziness: N Needs help standing or walking: N Fallen in the last 3 months: Y Fall risk comments: 6. Patient on Blood Thinner: None 7. History of Hypertension: N 8. Opioid Therapy greater than 6 weeks: Y Opiate Contract Signed: 01/23/21 9. Risk Assessment Tool Provided: low risk-2 10. Functional Assessment Tool: 11. Recreational Drug Use: Never Drug Type: Tobacco Use: Never Smoker Tobacco Type: Amount or Packs/day: How Many Years: Alcohol Use: Yes Frequency: Quant:
== END | disposition home or self-care (01) ==
LOC: PAIN 06-05 08:53
PROVIDERS: ATTEND Anesthesiology Pain Medicine
DX: Z45.1 Encounter for adjustment and management of infusion pump (principal); M54.16 Radiculopathy, lumbar region; M96.1 Postlaminectomy syndrome, not elsewhere classified; G89.29 Other chronic pain; M19.90 Unspecified osteoarthritis, unspecified site; Z98.890 Other specified postprocedural states; Z79.899 Other long term (current) drug therapy; Z88.2 Allergy status to sulfonamides; Z91.041 Radiographic dye allergy status; Z88.8 Allergy status to other drugs, medicaments and biological substances; Z88.6 Allergy status to analgesic agent